=== PATIENT | female | born 1950 | race Caucasian/White ===

== ENCOUNTER 2018-05-04 13:38 | Emergency (ER) | payer OTHER ==
[~2018-05-04] VITALS: Ht 160 cm; Wt 61.2 kg
--- NOTE | ~2018-05-04 | EKG ---
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
[2018-05-04 14:39] LABS: HEMATOCRIT 33.6 % (37.0-47.0); HEMOGLOBIN 11.5 gm/dL (12.0-15.0); MCH 31.6 pg (26.0-34.0); MCHC 34.2 g/dL (28.0-37.0); MCV 92.4 fL (80.0-100.0); RBC 3.64 mil/uL (4.20-5.00); RDW 12.5 % (10.5-14.5); WBC 3.7 thou/uL (4.0-11.0)
[2018-05-04 14:46] LABS: ANION GAP 5 mmol/L (7-16); BUN 5 mg/dL (7-18); CALCIUM 9.2 mg/dL (8.5-10.1); CHLORIDE 94 mmol/L (98-107); CO2 25 mmol/L (21-32); CREATININE 0.6 mg/dL (0.6-1.0); GLUCOSE 99 mg/dL (74-106); POTASSIUM 3.7 mmol/L (3.5-5.1); SODIUM 124 mmol/L (136-145)
[2018-05-04 14:56] LABS: TROPONIN-I <0.06 ng/mL (<0.06)
[2018-05-04 16:14] LABS: URINE BILIRUBIN NEGATIVE (Negative); URINE BLOOD 2+ (Negative); URINE CLARITY CLEAR; URINE COLOR YELLOW; URINE GLUCOSE-RANDOM* NEGATIVE (Negative); URINE KETONES NEGATIVE (Negative); URINE NITRITE-REFLEX NEGATIVE (Negative); URINE PROTEIN (DIPSTICK) NEGATIVE (Negative); URINE UROBILINOGEN 0.2 E.U./dl (0.2-1.0)
[2018-05-04 16:15] LABS: URINE LEUKOCYTES-REFLEX TRACE (Negative)
[2018-05-04 16:22] LABS: BACTERIA-REFLEX None Seen /HPF (None Seen); CASTS None Seen /LPF (None Seen); CRYSTALS None Seen /LPF (None Seen); SQUAMOUS 4-10 Moderate /LPF (0-3); URINE RBC 3-10 Few /HPF (0-2); URINE WBC-REFLEX 0-5 Rare /HPF (0-5)
[2018-05-04 18:36] VITALS: BP 140/69
== END 2018-05-04 18:36 ==
LOC: ER 13:38
PROVIDERS: Emergency Medicine
DX: R42 Dizziness and giddiness (principal); J44.9 Chronic obstructive pulmonary disease, unspecified; Z88.6 Allergy status to analgesic agent; Z88.8 Allergy status to other drugs, medicaments and biological substances; Z85.118 Personal history of other malignant neoplasm of bronchus and lung

== ENCOUNTER 2018-06-20 07:03 | Emergency (ER) | payer OTHER ==
[~2018-06-20] VITALS: Ht 154.9 cm; Wt 49.4 kg
--- NOTE | ~2018-06-20 | EKG ---
[address] [address] ELECTROCARDIOGRAM REPORT Name: ELANNELIA Room #: DEP Mohsen#: [id number] Admission: 06/20/18 Attend Phys: Discharge: 06/20/18 Date of : 46 Report #: [id number] THIS REPORT FOR: //name// 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
[2018-06-20] MEDS ORDERED: TYLENOL325 MG PO (07:58)
[2018-06-20] MEDS ORDERED: BENADRYL25 MG PO (07:58)
[2018-06-20] MEDS ORDERED: VENTOLIN HFA 1818 GM INH (07:59)
[2018-06-20] MEDS ORDERED: ATIVAN1 MG PO (07:59)
[2018-06-20 08:09] LABS: ABSOLUTE NEUTROPHILS 3.4 thou/uL (1.4-8.2); BASOPHILS 0.6 % (0.0-2.0); EOSINOPHILS 0.6 % (0.0-3.0); HEMATOCRIT 34.4 % (37.0-47.0); LYMPHOCYTES 7.4 % (24.0-44.0); MCH 31.8 pg (26.0-34.0); MCHC 34.8 g/dL (28.0-37.0); MCV 91.3 fL (80.0-100.0); MONOCYTES 10.6 % (1.0-8.0); PLATELET COUNT 170 thou/uL (150-400); POLYS 80.8 % (36.0-66.0); RBC 3.77 mil/uL (4.20-5.00); WBC 4.2 thou/uL (4.0-11.0)
[2018-06-20 08:18] LABS: ANION GAP 7 mmol/L (7-16); BUN 8 mg/dL (7-18); CALCIUM 9.4 mg/dL (8.5-10.1); CHLORIDE 99 mmol/L (98-107); CO2 26 mmol/L (21-32); CREATININE 0.7 mg/dL (0.6-1.0); POTASSIUM 3.8 mmol/L (3.5-5.1); SODIUM 132 mmol/L (136-145)
[2018-06-20 08:27] LABS: ALBUMIN 3.4 g/dL (3.4-5.0); MAGNESIUM 1.9 mg/dL (1.8-2.4); SGOT 14 U/L (15-37); SGPT 15 U/L (30-65); TOTAL BILIRUBIN 0.3 mg/dL (<0.1-1.0); TOTAL PROTEIN 7.9 g/dL (6.4-8.2); TROPONIN-I <0.06 ng/mL (<0.06)
[2018-06-20 08:37] LABS: GLUCOSE 115 mg/dL (74-106)
[2018-06-20 08:44] LABS: URINE BILIRUBIN NEGATIVE (Negative); URINE BLOOD 2+ (Negative); URINE CLARITY CLEAR; URINE COLOR YELLOW; URINE GLUCOSE-RANDOM* NEGATIVE (Negative); URINE KETONES NEGATIVE (Negative); URINE NITRITE-REFLEX NEGATIVE (Negative); URINE PROTEIN (DIPSTICK) NEGATIVE (Negative); URINE SPECIFIC GRAVITY <= 1.005 (1.005-1.035); URINE UROBILINOGEN 0.2 E.U./dl (0.2-1.0)
[2018-06-20 08:45] LABS: URINE LEUKOCYTES-REFLEX TRACE (Negative)
[2018-06-20 08:57] LABS: CASTS None Seen /LPF (None Seen); MUCUS 0-3 Light strn/LPF (None Seen); SQUAMOUS >10 Many /LPF (0-3)
[2018-06-20 08:58] LABS: BACTERIA-REFLEX None Seen /HPF (None Seen); CRYSTALS None Seen /LPF (None Seen); URINE RBC 3-10 Few /HPF (0-2); URINE WBC-REFLEX 0-5 Rare /HPF (0-5)
[2018-06-20 11:12] VITALS: BP 158/79
== END 2018-06-20 11:13 | disposition home or self-care (01) ==
LOC: ER 07:03
PROVIDERS: Emergency Medicine
DX: R42 Dizziness and giddiness (principal); R00.0 Tachycardia, unspecified; R51 Headache; R11.0 Nausea; J44.9 Chronic obstructive pulmonary disease, unspecified; Z88.6 Allergy status to analgesic agent; Z88.8 Allergy status to other drugs, medicaments and biological substances; Z85.118 Personal history of other malignant neoplasm of bronchus and lung

== ENCOUNTER 2018-08-13 16:41 | Emergency (ER) | payer OTHER ==
[~2018-08-13] VITALS: Ht 154.9 cm; Wt 47.2 kg
--- NOTE | ~2018-08-13 | EKG ---
[address] [address] ELECTROCARDIOGRAM REPORT Name: NELIA ANSARI 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: NADEGE : 1950 Requested By: Hero Tellez Order Number: [id number] MD: Beck Sosa Measurements Intervals [place] Rate: 108 P: 64 [place]: 172 QRS: 67 QRSD: 80 T: 55 QT: 356 QTc: 477 Interpretive Statements Sinus tachycardia Ventricular premature complex Compared to ECG 06/20/2018 07:11:29 Ventricular premature complex(es) now present Electronically Signed On 08-14-2018 7:44:06 BLASTING CONTRACT MINER by Beck Sosa [email or web address] <ELECTRONICALLY SIGNED> By: Beck Sosa MD, [facility] 08/14/18 0744 29 29 Beck Sosa MD, FAC /EPI
[~2018-08-13 16:41] MED LIST: ATIVAN1 MG PO; BENADRYL25 MG PO; TYLENOL325 MG PO; VENTOLIN HFA 1818 GM INH
[2018-08-13] MEDS ORDERED: NEURONTIN 300300 M1 PO (17:20)
[2018-08-13 17:41] LABS: ABSOLUTE NEUTROPHILS 9.3 thou/uL (1.4-8.2); BASOPHILS 0.5 % (0.0-2.0); EOSINOPHILS 0.2 % (0.0-3.0); HEMATOCRIT 35.3 % (37.0-47.0); HEMOGLOBIN 12.1 gm/dL (12.0-15.0); LYMPHOCYTES 2.2 % (24.0-44.0); MCH 31.2 pg (26.0-34.0); MCHC 34.3 g/dL (28.0-37.0); MONOCYTES 6.8 % (1.0-8.0); PLATELET COUNT 166 thou/uL (150-400); POLYS 90.3 % (36.0-66.0); RBC 3.88 mil/uL (4.20-5.00); RDW 13.1 % (10.5-14.5); WBC 10.2 thou/uL (4.0-11.0)
[2018-08-13 17:51] LABS: ANION GAP 10 mmol/L (7-16); BUN 7 mg/dL (7-18); CALCIUM 9.8 mg/dL (8.5-10.1); CHLORIDE 93 mmol/L (98-107); CO2 25 mmol/L (21-32); CREATININE 0.7 mg/dL (0.6-1.0); GLUCOSE 135 mg/dL (74-106); SODIUM 128 mmol/L (136-145)
[2018-08-13 18:00] LABS: TROPONIN-I <0.06 ng/mL (<0.06)
[2018-08-13] MEDS ORDERED: ALBUTEROL2.5 MG/31 INH (19:38)
[2018-08-13] MEDS ORDERED: AUGMENTIN 500-1 EACH PO (19:38)
[2018-08-13] MEDS ORDERED: PREDNISONE 20 M20 MG PO (19:38)
[2018-08-13 22:17] VITALS: BP 124/65
== END 2018-08-13 22:20 | disposition home or self-care (01) ==
LOC: ER 16:41
PROVIDERS: Emergency Medicine
DX: J44.1 Chronic obstructive pulmonary disease with (acute) exacerbation (principal); R00.0 Tachycardia, unspecified; Z85.118 Personal history of other malignant neoplasm of bronchus and lung; Z88.5 Allergy status to narcotic agent; Z88.6 Allergy status to analgesic agent

== ENCOUNTER 2019-06-01 23:16 | Emergency (ER) | payer OTHER ==
[~2019-06-01] VITALS: Ht 152.4 cm; Wt 54.4 kg
[~2019-06-01 23:16] MED LIST changes: +ALBUTEROL2.5 MG/31 INH; +AUGMENTIN 500-1 EACH PO; +NEURONTIN 300300 M1 PO; +PREDNISONE 20 M20 MG PO
[2019-06-01] MEDS ORDERED: PULMICORT0.5 MG/22 INH (23:41)
[2019-06-01] MEDS ORDERED: SYNTHROID75 MCG PO (23:43)
[2019-06-01] MEDS ORDERED: MECLIZINE HCL12.5 MG PO (23:46)
[2019-06-01] MEDS ORDERED: LOPRESSOR25 PO (23:46)
[2019-06-01] MEDS ORDERED: ONDANSETRON HCL4 M2 PO (23:47)
[2019-06-02 00:49] LABS: HEMATOCRIT 31.3 % (37.0-47.0); HEMOGLOBIN 10.5 gm/dL (12.0-15.0); MCH 29.4 pg (26.0-34.0); MCHC 33.5 g/dL (28.0-37.0); MCV 87.7 fL (80.0-100.0); PLATELET COUNT 183 thou/uL (150-400); RBC 3.56 mil/uL (4.20-5.00); RDW 15.1 % (10.5-14.5); WBC 4.6 thou/uL (4.0-11.0)
[2019-06-02 00:55] LABS: ANION GAP 6 mmol/L (7-16); BUN 10 mg/dL (7-18); CALCIUM 9.2 mg/dL (8.5-10.1); CHLORIDE 98 mmol/L (98-107); CO2 27 mmol/L (21-32); CREATININE 0.6 mg/dL (0.6-1.0); GLUCOSE 109 mg/dL (74-106); POTASSIUM 3.1 mmol/L (3.5-5.1); SODIUM 131 mmol/L (136-145)
[2019-06-02 01:04] LABS: MAGNESIUM 1.7 mg/dL (1.8-2.4); TROPONIN-I <0.06 ng/mL (<0.06)
[2019-06-02 01:17] LABS: ABSOLUTE NEUTROPHILS 3.6 thou/uL (1.4-8.2)
[2019-06-02 02:44] VITALS: BP 167/89
--- NOTE | 2019-06-03 09:09 | EKG ---
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 : 1950 Requested By: Jarrod Zavala Order Number: [id number] MD: Zacarias Mascorro Measurements Intervals [place] Rate: 67 P: 80 ID: 176 QRS: 56 QRSD: 105 T: 56 QT: 450 QTc: 475 Interpretive Statements Sinus rhythm Borderline T abnormalities, anterior leads Compared to ECG 08/13/2018 17:30:54 T-wave abnormality now present Sinus tachycardia no longer present Ventricular premature complex(es) no longer present Electronically Signed On 06-03-2019 9:09:17 CDT by Zacarias Mascorro [email or web address] <ELECTRONICALLY SIGNED> By: Zacarias Mascorro MD 06/03/1909 0014 0014 Zacarias Mascorro MD /EPI
== END 2019-06-02 02:45 | disposition home or self-care (01) ==
LOC: ER 23:16
PROVIDERS: Emergency Medicine
DX: S01.81XA Laceration without foreign body of other part of head, initial encounter (principal); Z85.118 Personal history of other malignant neoplasm of bronchus and lung; Z88.6 Allergy status to analgesic agent; Z88.5 Allergy status to narcotic agent; Z88.8 Allergy status to other drugs, medicaments and biological substances; W18.39XA Other fall on same level, initial encounter; Y92.89 Other specified places as the place of occurrence of the external cause; Y93.89 Activity, other specified; Y99.8 Other external cause status

== ENCOUNTER 2019-07-02 18:57 | Emergency (ER) | payer OTHER ==
[~2019-07-02] VITALS: Ht 152.4 cm; Wt 47.2 kg
--- NOTE | ~2019-07-02 | EMS ---
[address] [address] EMS Patient Care Report Name: NELIA ANSARI Room #: REG MAGEN Connolly#: [id number] Admission: 07/02/19 Attend Phys: Discharge: Date of : 46 Report #: [id number] THIS REPORT FOR: //name// Report Transmitted: 07/02/2019 18:31 EMS Care Summary [place], [place]/[facility] Incident [id number] @ 07/02/2019 18:36 Incident Location [address] [address] Patient NELIA ANSARI Female, 68 Years 1950 Patient Address [address] [place] [address] Patient History Lung Cancer,Hypothyroidism, Patient Allergies Codeine,Hydrocodone,Diphenhydramine,Prednisone, Patient Medications Metoprolol, Synthroid, Lorazepam, Meclizine, Albuterol, Chief Complaint DIARRHEA Disposition Transported No Lights/[place] Dispatch Reason Sick Person Transported To [facility] Narrative PATIENT REPORTS PERSISTENT DIARRHEA FOR THE PAST DAY. SHE STATES SHE TOOK SOME OTC MEDICATION ABOUT 3 HOURS AGO WITH NO RELIEF. PATIENT FOUND AMBULATING THE SCENE ALERT, APPROPRIATE, SPEAKING IN FULL SENTENCES. PATIENT ASSISTED TO THE COT AND SECURED. PATIENT TRANSPORTED WITHOUT INCIDENT. RADIO REPORT TO [facility]. PATIENT CARE TRANSFERRED TO RN UPON ARRIVAL. [address] [address] EMS Patient Care Report Name: NELIA ANSARI Room #: REG MAGEN Connolly#: [id number] Admission: 07/02/19 Attend Phys: Discharge: Date of : 46 Report #: [id number] Initial Vitals @18:46P: 89,R: 18,BP: 155/76,Pain: 0/10,GCS: 15,CO: 1,SpO2: 95,Revised Trauma: 12, @18:43P: 92,R: 18,BP: 154/82,Pain: 0/10,GCS: 15,CO: 1,SpO2: 95,Revised Trauma: 12, Assessments @18:41MENTAL:Person Oriented,Time Oriented,Event Oriented,Place Oriented,SKIN:HEENT:LUNG SOUNDS:General: Diarrhea,ABDOMEN:General: Diarrhea,PELVIS//GI:No Abnormalities,EXTREMITIES:Left Arm: No Abnormalities,Right Arm: No Abnormalities,Left Leg: No Abnormalities,Right Leg: No Abnormalities,PULSE:NEURO:No Abnormalities, Impression Diarrhea Procedures @18:41ALS AssessmentResponse: Unchanged Timeline 18:34,Call Received 18:34,Dispatch Notified 18:36,Dispatched 18:36,En Route 18:39,On Scene 18:41,At Patient 18:41,ALS Assessment,Response: Unchanged 18:43,BP: 154/82 M,PULSE: 92,RR: 18 R,SPO2: 95 Ox,ETCO2: ,BG: ,PAIN: 0,GCS: 15, 18:44,Depart Scene 18:46,BP: 155/76 M,PULSE: 89,RR: 18 R,SPO2: 95 Ox,ETCO2: ,BG: ,PAIN: 0,GCS: 15, 18:53,At Destination 19:09,Call Closed Disclaimer v1.1 Copyright 2019 [employer] This EMS Care Summary contains data elements from the applicable legal record (which may be displayed differently). It is designed to provide pertinent information for the following purposes: continuity of care, clinical quality, and state data reporting. The complete legal record is available to ED staff and administrators of the receiving hospital in [employer] Patient Tracker. All data is provided "as is."
[~2019-07-02 18:57] MED LIST changes: +LOPRESSOR25 PO; +MECLIZINE HCL12.5 MG PO; +ONDANSETRON HCL4 M2 PO; +PULMICORT0.5 MG/22 INH; +SYNTHROID75 MCG PO
[2019-07-02 19:51] LABS: ANION GAP 7 mmol/L (7-16); BUN 9 mg/dL (7-18); CALCIUM 9.6 mg/dL (8.5-10.1); CHLORIDE 101 mmol/L (98-107); CO2 28 mmol/L (21-32); CREATININE 0.6 mg/dL (0.6-1.0); GLUCOSE 127 mg/dL (74-106); POTASSIUM 3.9 mmol/L (3.5-5.1); SODIUM 136 mmol/L (136-145)
[2019-07-02 19:52] LABS: BASOPHILS 0.9 % (0.0-2.0); EOSINOPHILS 0.6 % (0.0-3.0); HEMATOCRIT 36.1 % (37.0-47.0); HEMOGLOBIN 11.6 gm/dL (12.0-15.0); LYMPHOCYTES 8.8 % (24.0-44.0); MCH 28.6 pg (26.0-34.0); MCV 89.2 fL (80.0-100.0); MONOCYTES 11.8 % (1.0-8.0); PLATELET COUNT 187 thou/uL (150-400); POLYS 77.9 % (36.0-66.0); RBC 4.04 mil/uL (4.20-5.00); RDW 15.7 % (10.5-14.5); WBC 6.5 thou/uL (4.0-11.0)
[2019-07-02 19:58] LABS: ALBUMIN 3.7 g/dL (3.4-5.0); DIRECT BILIRUBIN < 0.1 mg/dL (<0.1-0.3); SGOT 12 U/L (15-37); SGPT 10 U/L (30-65); TOTAL BILIRUBIN 0.1 mg/dL (<0.1-1.0)
[2019-07-02 20:34] LABS: URINE BILIRUBIN NEGATIVE (Negative); URINE BLOOD 2+ (Negative); URINE CLARITY CLEAR; URINE COLOR YELLOW; URINE GLUCOSE-RANDOM* NEGATIVE (Negative); URINE KETONES NEGATIVE (Negative); URINE LEUKOCYTES-REFLEX NEGATIVE (Negative); URINE NITRITE-REFLEX NEGATIVE (Negative); URINE PROTEIN (DIPSTICK) NEGATIVE (Negative); URINE SPECIFIC GRAVITY 1.015 (1.005-1.035); URINE UROBILINOGEN 0.2 E.U./dl (0.2-1.0)
[2019-07-02 20:44] LABS: BACTERIA-REFLEX None Seen /HPF (None Seen); CASTS None Seen /LPF (None Seen); MUCUS >6 Heavy strn/LPF (None Seen); SQUAMOUS 0-3 Few /LPF (0-3); URINE RBC >20 Many /HPF (0-2); URINE WBC-REFLEX 0-5 Rare /HPF (0-5)
[2019-07-02 20:45] LABS: AMORPHOUS PHOSPHATES Moderate /LPF (None Seen)
[2019-07-02 23:11] VITALS: BP 165/85
== END 2019-07-02 23:11 | disposition home or self-care (01) ==
LOC: ER 18:57
PROVIDERS: Emergency Medicine
DX: R19.7 Diarrhea, unspecified (principal); Z85.118 Personal history of other malignant neoplasm of bronchus and lung; Z88.6 Allergy status to analgesic agent; Z88.5 Allergy status to narcotic agent

== ENCOUNTER 2019-12-10 16:06 | Emergency (ER) | payer OTHER ==
[~2019-12-10] VITALS: Ht 154.9 cm; Wt 45.4 kg
--- NOTE | 2019-12-10 16:29 | EKG ---
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
[2019-12-10 16:41] LABS: HEMATOCRIT 34.4 % (37.0-47.0); HEMOGLOBIN 11.3 gm/dL (12.0-15.0); MCH 29.4 pg (26.0-34.0); MCHC 32.8 g/dL (28.0-37.0); MCV 89.8 fL (80.0-100.0); PLATELET COUNT 228 thou/uL (150-400); RBC 3.83 mil/uL (4.20-5.00); WBC 4.2 thou/uL (4.0-11.0)
[2019-12-10 16:47] LABS: ANION GAP 4 mmol/L (7-16); BUN 7 mg/dL (7-18); CALCIUM 9.1 mg/dL (8.5-10.1); CHLORIDE 98 mmol/L (98-107); CO2 29 mmol/L (21-32); CREATININE 0.7 mg/dL (0.6-1.0); GLUCOSE 96 mg/dL (74-106); SODIUM 131 mmol/L (136-145)
[2019-12-10 16:51] LABS: URINE BILIRUBIN NEGATIVE (Negative); URINE BLOOD 2+ (Negative); URINE CLARITY CLEAR; URINE COLOR YELLOW; URINE GLUCOSE-RANDOM* NEGATIVE (Negative); URINE KETONES NEGATIVE (Negative); URINE NITRITE-REFLEX NEGATIVE (Negative); URINE PROTEIN (DIPSTICK) NEGATIVE (Negative); URINE SPECIFIC GRAVITY 1.015 (1.005-1.035); URINE UROBILINOGEN 0.2 E.U./dl (0.2-1.0)
[2019-12-10 16:57] LABS: MAGNESIUM 1.9 mg/dL (1.8-2.4); SALICYLATE < 2.8 mg/dL (2.8-20.0); SGOT 11 U/L (15-37); SGPT 6 U/L (30-65); TOTAL BILIRUBIN 0.2 mg/dL (<0.1-1.0); TOTAL PROTEIN 7.6 g/dL (6.4-8.2); TROPONIN-I <0.06 ng/mL (<0.06)
[2019-12-10 16:58] LABS: URINE LEUKOCYTES-REFLEX 2+ (Negative)
[2019-12-10 16:59] LABS: AMP/METHAMP Negative (Negative); BARBITURATES Negative (Negative); BENZODIAZEPINES Negative (Negative); COCAINE Negative (Negative); METHADONE Negative (Negative); OPIATES Negative (Negative); PCP Negative (Negative)
[2019-12-10 17:00] LABS: CASTS None Seen /LPF (None Seen); CRYSTALS None Seen /LPF (None Seen); SQUAMOUS 4-10 Moderate /LPF (0-3)
[2019-12-10 17:01] LABS: URINE RBC 0-2 Rare /HPF (0-2); URINE WBC-REFLEX 6-15 Few /HPF (0-5)
[2019-12-10 17:17] LABS: ANISOCYTOSIS 1+
[2019-12-10] MEDS ORDERED: KEFLEX500 M1 PO (17:26)
[2019-12-10 18:21] VITALS: BP 136/60
== END 2019-12-10 19:32 | disposition home or self-care (01) ==
LOC: ER 16:06
PROVIDERS: Emergency Medicine
DX: N39.0 Urinary tract infection, site not specified (principal); R41.0 Disorientation, unspecified; E05.90 Thyrotoxicosis, unspecified without thyrotoxic crisis or storm; R42 Dizziness and giddiness; J44.9 Chronic obstructive pulmonary disease, unspecified; Z79.899 Other long term (current) drug therapy

== ENCOUNTER 2020-02-09 23:39 | Emergency (ER) | payer OTHER ==
[~2020-02-09] VITALS: Ht 152.4 cm; Wt 45.4 kg
[~2020-02-09 23:39] MED LIST changes: +ATIVAN1 M1 PO; -ATIVAN1 MG PO; +KEFLEX500 M1 PO; -LOPRESSOR25 PO; +METOPROLOL TART25 MG PO
[2020-02-09] MEDS ORDERED: ANORO ELLIPTA1 EACH INH (23:59)
[2020-02-10] MEDS ORDERED: LEXAPRO 10 MG T10 M2 PO
[2020-02-10] MEDS ORDERED: TESSALON PERLE100 M1 PO (00:04)
[2020-02-10] MEDS ORDERED: BISMATROL PO (00:06)
[2020-02-10] MEDS ORDERED: INTERMEZZO3.5 MG PO (00:07)
[2020-02-10 00:11] LABS: HEMATOCRIT 35.7 % (37.0-47.0); MCHC 33.5 g/dL (28.0-37.0); MCV 89.4 fL (80.0-100.0); PLATELET COUNT 204 thou/uL (150-400); RBC 3.99 mil/uL (4.20-5.00); RDW 14.3 % (10.5-14.5); WBC 6.2 thou/uL (4.0-11.0)
[2020-02-10 00:16] LABS: ANION GAP 6 mmol/L (7-16); BUN 10 mg/dL (7-18); CALCIUM 8.6 mg/dL (8.5-10.1); CHLORIDE 96 mmol/L (98-107); CO2 26 mmol/L (21-32); CREATININE 0.9 mg/dL (0.6-1.0); GLUCOSE 101 mg/dL (74-106); POTASSIUM 3.6 mmol/L (3.5-5.1); SODIUM 128 mmol/L (136-145)
[2020-02-10 00:25] LABS: TROPONIN-I <0.06 ng/mL (<0.06)
[2020-02-10 00:48] LABS: ABSOLUTE NEUTROPHILS 5.6 thou/uL (1.4-8.2)
[2020-02-10 00:49] LABS: PLATELET ESTIMATE NORMAL
[2020-02-10 02:48] VITALS: BP 125/76
--- NOTE | 2020-02-10 08:10 | EKG ---
[facility] [place] [address] ELECTROCARDIOGRAM REPORT Name: NELIA ANSARI Room #: DEP [facility] [id number] Admission: 02/09/20 Attend Phys: Discharge: 02/10/20 Date of : 46 Report #: [id number] THIS REPORT FOR: cc: Lukasz St MD, Darren E. MD Lundgren,Beck Bob MD [facility] THIS REPORT FOR: //name// [facility] ED Test Date: 2020-02-09 Test Time: 23:42:28 Pat Name: NELIA ANSARI Department: Room: Gender: Bottle Blower: brenad : 1950 Requested By: Jarrod Zavala Order Number: [id number] MD: Beck Sosa Measurements Intervals [place] Rate: 60 P: 79 [place]: 169 QRS: 59 QRSD: 105 T: 50 QT: 448 QTc: 448 Interpretive Statements Sinus rhythm No significant abnormality Compared to ECG 12/10/2019 16:14:10 No significant changes Electronically Signed On 02-10-2020 8:08:40 CDT by Beck Sosa [email or web address] <ELECTRONICALLY SIGNED> By: Beck Sosa MD, FACC 02/10/20 0808 2342 2342 Beck Sosa MD, [facility] /EPI
== END 2020-02-10 03:42 | disposition home or self-care (01) ==
LOC: ER 23:39
PROVIDERS: Emergency Medicine
DX: R07.89 Other chest pain (principal); R42 Dizziness and giddiness; M25.511 Pain in right shoulder; J44.9 Chronic obstructive pulmonary disease, unspecified; Z85.118 Personal history of other malignant neoplasm of bronchus and lung; Z79.899 Other long term (current) drug therapy; Z88.6 Allergy status to analgesic agent; Z88.8 Allergy status to other drugs, medicaments and biological substances

== ENCOUNTER 2020-10-04 18:06 | Inpatient (IN) | payer OTHER ==
[~2020-10-04] VITALS: Ht 152.4 cm; Wt 47.3 kg
[~2020-10-04 18:06] MED LIST changes: +ANORO ELLIPTA1 EACH INH; +BISMATROL PO; +INTERMEZZO3.5 MG PO; +LEXAPRO 10 MG T10 M2 PO; +TESSALON PERLE100 M1 PO
[2020-10-04 18:07] VITALS: BP 151/96
[2020-10-04 18:51] LABS: ABSOLUTE NEUTROPHILS 9.3 thou/uL (1.4-8.2); BASOPHILS 0.6 % (0.0-2.0); EOSINOPHILS 0.3 % (0.0-3.0); HEMATOCRIT 35.3 % (37.0-47.0); HEMOGLOBIN 11.6 gm/dL (12.0-15.0); LYMPHOCYTES 3.3 % (24.0-44.0); MCH 29.6 pg (26.0-34.0); MCHC 32.9 g/dL (28.0-37.0); MCV 89.8 fL (80.0-100.0); MONOCYTES 9.6 % (1.0-8.0); PLATELET COUNT 340 thou/uL (150-400); POLYS 86.2 % (36.0-66.0); RBC 3.93 mil/uL (4.20-5.00); RDW 14.7 % (10.5-14.5); WBC 10.8 thou/uL (4.0-11.0)
[2020-10-04 19:08] LABS: ALBUMIN 3.5 g/dL (3.4-5.0); CREATININE 0.7 mg/dL (0.6-1.0); DIRECT BILIRUBIN 0.1 mg/dL (<0.1-0.2); POTASSIUM 3.5 mmol/L (3.5-5.1); TOTAL BILIRUBIN 0.4 mg/dL (0.2-1.0); TOTAL PROTEIN 8.1 g/dL (6.4-8.2)
[2020-10-04 19:22] LABS: CALCIUM 9.1 mg/dL (8.5-10.1)
[2020-10-04 21:08] LABS: URINE BILIRUBIN NEGATIVE (Negative); URINE BLOOD 1+ (Negative); URINE CLARITY CLEAR; URINE COLOR YELLOW; URINE GLUCOSE-RANDOM* NEGATIVE (Negative); URINE KETONES 1+ (Negative); URINE LEUKOCYTES-REFLEX NEGATIVE (Negative); URINE NITRITE-REFLEX NEGATIVE (Negative); URINE PROTEIN (DIPSTICK) NEGATIVE (Negative); URINE UROBILINOGEN 0.2 E.U./dl (0.2-1.0)
[2020-10-04 21:31] LABS: BACTERIA-REFLEX 1-9 Few /HPF (None Seen); CASTS None Seen /LPF (None Seen); CRYSTALS None Seen /LPF (None Seen); MUCUS 0-3 Light strn/LPF (None Seen); SQUAMOUS 0-3 Few /LPF (0-3); URINE RBC 3-10 Few /HPF (0-2); URINE WBC-REFLEX 0-5 Rare /HPF (0-5)
[2020-10-04] MEDS ORDERED: LEVO-T50 MCG PO (23:05)
[2020-10-05 05:17] LABS: HEMATOCRIT 36.1 % (37.0-47.0); HEMOGLOBIN 11.9 gm/dL (12.0-15.0); MCH 29.9 pg (26.0-34.0); MCHC 33.1 g/dL (28.0-37.0); MCV 90.3 fL (80.0-100.0); RBC 3.99 mil/uL (4.20-5.00); RDW 14.8 % (10.5-14.5); WBC 9.5 thou/uL (4.0-11.0)
[2020-10-05 06:00] LABS: CALCIUM 9.3 mg/dL (8.5-10.1); CREATININE 0.7 mg/dL (0.6-1.0); POTASSIUM 3.6 mmol/L (3.5-5.1)
[2020-10-05 07:35] VITALS: BP 119/67
[2020-10-05 07:47] VITALS: BP 119/67
[2020-10-05 09:13] VITALS: BP 130/74
--- NOTE | 2020-10-05 14:04 | NUR ---
1 ODD JOB LABORER, 1 DINAMAP MACHINE, 16 PATIENTS
--- NOTE | 2020-10-05 14:12 | NUR ---
P A&OX4, FORGETFUL, VSS, PAIN LEFT SIDE FROM FALL AT HOME. IV LEFT FA PATENT SL. PATIENT ROOM AIR, SOA ON EXERTION. PATIENT STATES SHE FEELS MORE COMFORTABLE WITH WALKER, CLEARED 1 ASSIST BY PT. NO SIGNS OF DISTRESS. WILL CONTINUE TO MONITOR.
--- NOTE | 2020-10-05 15:38 | NUR ---
PT ADMITTED RELATED TO COPD EXACERBATION. CM REVIEWED CHART AND SPOKE WITH CARE TEAM. CM MET WITH PT AT BEDSIDE THIS DAY. PT APPEARS TO BE A&O X4. CM ROLE INTRODUCED. PT INDICATED SHE LIVES AT [facility]. PT INDICATED SHE USES A FWW TO ASSIST WITH MOBILITY. PT INDICATED SHE HAS AN INHALER FOR HOME USE BUT NO NEBULIZER OR HOME O2. PT INDICATED HER PCP IS DR. TALON NORWOOD. PT WORKED WITH PT AND INDICATED SHE WOULD BE SAFE TO DC BACK TO [place] ONCE MEDICALLY STABLE. CM FOLLOWING REGARDING DC PLANNING.
[2020-10-05 16:10] VITALS: BP 142/75
[2020-10-05 19:38] VITALS: BP 129/87
[2020-10-06 07:27] VITALS: BP 141/78
--- NOTE | 2020-10-06 08:01 | NUR ---
PROGRESS PT UP WITH SBA GAIT STEADY BUT PT STILL REPORTS NAUSEA AND VERTIGO. DENIED NEED FOR MEDICATION SLEPT MOST OF SHIFT VOIDING QS RT TX'S CONTINUE LUNGS COARSE AND DIMINISHED NO COUGH NOTED.
[2020-10-06 15:34] VITALS: BP 148/106
--- NOTE | 2020-10-06 16:37 | NUR ---
PT STILL COMPLAINING OF VERTIGO AND NEASUEA. ANTICIPATE POSSIBLE DC BACK TO [facility] TOMORROW. CM TO FOLLOW INDICATED WITH DC PLANNING.
[2020-10-06 20:21] VITALS: BP 144/93
--- NOTE | 2020-10-06 21:06 | NUR ---
ASSUMED CARE OF THE [ATIENT AT 0715, PATIENT ALERT WITH CONFUSION AND FORGETFUL. PATIENT ANXIOUS THE SHIFY ANF NAUSEATED, ALSO C/O DIZZINESS. DR HENDERSON NOTIFIED IN REGARD TO DIZZINESS, NAUSEA, AND B/P ELEVATED 140'S/100'S, HE STATED HE WILL LOOK AT HOME MEDS, ALSO NOTIFIED DR LOU, PATIENT ANXIOUS, HOME MEDS STATES LORAZEPAM 1.5 MG QID, HE STATED HE WOULD LOOK AT HOME MEDS. ORDER RECEIVED FO MECLZINE TID. PATIENT GIVEN ZOFREN 4MG IV X 2 THIS SHIFT. POSSIBLE DISCHARGE TOMORROW. WILL CONTINUE TO MONITOR.
[2020-10-07 07:50] VITALS: BP 147/97
--- NOTE | 2020-10-07 13:25 | NUR ---
Received awake on bed. Due medications given as prescribed, able to swallow meds w/o difficulty. On room air. Vital signs stable. On telemetry; no complains and chest pain, crushing sensation and heaviness. On regular diet- tolerating well; no vomiting and no abdominal pain noted. Continent of bowel and bladder, able to go to the toilet with standby assist, walker and gait belt. Falls bundle in place. With SL at L Fa- intact and flushing well. Assisted in ADLs. Pt complained of dizziness, on scheduled Meclizine- Dr Zamora informed and aware. Verified with pt re: pharmacy- unable to remember; CM informed that pt gets her medications from her assisted living facility. To continue monitoring patient.
[2020-10-07] MEDS ORDERED: MECLIZINE HCL25 MG PO (13:26)
--- NOTE | 2020-10-07 15:02 | NUR ---
PT STILL COMPLAINING OF VERTIGO AND NAUSEA THIS DAY. PHYSICIAN ENTERED ORDERS FOR PT TO GO FOR A SKILLED REHAB STAY THIS DAY. CM MET WITH PT AND SHE WAS AGREEABLE. CM PROVIDED A SNF LIST FOR PT'S TO REVIEW. CM INDICATED THAT CM WASN'T SURE IF HER INSURNACE WOULD AUTH SKILLED PT DISCHARGED HER 10/05/19 AND SHE HASN'T YET BEEN SEEN SEEN BY OT. OT WAS ORDERED. COVID TEST COLLECTED. CM NOTIFIED PHYSICIAN OF THE ABOVE. CM TO FOLLOW INDICATED WITH DC PLANNING.
[2020-10-07 15:45] VITALS: BP 176/116
[2020-10-07 16:30] VITALS: BP 159/99
[2020-10-07 19:53] VITALS: BP 155/91
--- NOTE | 2020-10-07 22:15 | NUR ---
Pt. transfered to [address] [place] [address]. Her covid test came back positive and needs to be on the covid unit. She offers no complaints.
[2020-10-08] VITALS (7 sets, daily range): BP systolic 141–164; BP diastolic 92–109
--- NOTE | 2020-10-08 02:58 | NUR ---
ASSUMED CARE FROM RN ON 4W, UPON ARRIVAL TO UNIT HEART SHOWS NSR , SAT 96 -98 PN 1 L. BP ELEVATED 170/107 THEN 164/101 XAVIER LINK FLOATING DERRICK OPERATOR ORDERED ORDERS RECIEVED. PT BP RETAKEN 158/102 , PT DENIES CHEST PAIN OR SOA. WILL HOLD MEDICATION UNITL NEEDED. PT RESTING WELL THROUGHOUT HOURLY ROUNDS. WILL CONTINUE WITH CURRENT PLAN OF CARE.
--- NOTE | 2020-10-08 07:00 | NUR ---
Spoke with son this am and he was informed of patient being transfered to [facility].
--- NOTE | 2020-10-08 14:02 | NUR ---
JACOBY reviewed chart and spoke with nursing and attending physician. Pt was transferred to 3W rom 4W due to having positive COVID test. Pt placed in Enhanced Isolation. Pt is afebrile and on 1L of O2. Pt is on IV steroids. Therapy is working with pt to assist with recommendations for discharge disposition. Pt has been provided with in-network SNF list. Will need prior authorization for SNF level of care. JACOBY placed call to pt's room. No answer. Call placed to pt's cell phone: [phone]. Voice mailbox is not set up. JACOBY notified that Ronal, director at [facility] states they are able to accept pt back with [facility]. Per Ronal, pt had COVID positive test at the facility on 09/18. environmental planner to fax HH referral to Davin at [facility]. JACOBY left voice message for Ronal at [facility] to see if they are able to accept pt back over the weekend. JACOBY spoke with pt's son, Shahriar, via phone to provide update and discuss discharge plan. Pt's son is agreeable with plan. Pt may need transportation back to the facility. Finalized discharge orders/summary will need to be faxed to the facility and HH when available. JACOBY is following to assist as needed with discharge planning. [facility]-- [facility]-- [facility]--
--- NOTE | 2020-10-08 14:30 | NUR ---
FAXED REFERRAL TO [facility] SPOKE WITH LIDYA IN INTAKE THEY ARE OON WITH INSURANCE.
--- NOTE | 2020-10-08 16:05 | NUR ---
FAXED REFERRAL TO [facility] SPOKE WITH DIVINE IN INTAKE SHE RECEIVED REFERRAL AND WILL ACCEPT AT [facility].
--- NOTE | 2020-10-08 16:07 | NUR ---
POSSIBLE DISCHARGE OVER WEEKEND IF PT DISCHARGES FAY WITH HH PLEASE FAX DC ORDERS/SUMMARY TO: [facility] FAX: [phone] AND CALL [phone] NOTIFIY OF DISCHARGE.
--- NOTE | 2020-10-08 17:09 | NUR ---
RN ASSUMED PT'S CARE AT 0700AM, PT IS A&OX2 ( PERSON AND PLACE), PT IS CONFUSED AT TIME, PT HAS WORKED WITH PT/OT, PT'S VS ARE STABLE BY THIS TIME,
--- NOTE | 2020-10-08 22:53 | NUR ---
PT ALERT AND ORIENTED X4. VSS. AFEBRILE. NO C/O PAIN. NO S/S DISTRES ON RA. ISOLATION DC'D PER DR MICHAEL. FALL PRECAUTIONS IN PLACE. BED ALARM IS ON.
[2020-10-09 04:18] VITALS: BP 147/98
--- NOTE | 2020-10-09 07:26 | NUR ---
PT PROGRESSING SLOWLY TOWARDS D/C GOALS. VSS SAT 92% ON RA. CONFUSED. BED ALARM ON.
[2020-10-09 08:12] VITALS: BP 147/97
[2020-10-09 15:20] VITALS: BP 146/89
--- NOTE | 2020-10-09 18:35 | NUR ---
RN ASSUMED PT'S CARE AT 0700AM, PT IS A&OX1 ( PERSON), RN HAS REORTED DR ABOUT PT MORE CONFUSION TODAY, PT'S VS ARE STABLE, PT GETS UP TO CHAIR WITH ASSIST, PT IS HIGH FALL RISK, PT'S SECOND COVID TEST IS POSITIVE TODAY , PT IS CONTINUING ISOLATION .
[2020-10-09 19:11] VITALS: BP 144/95
--- NOTE | 2020-10-09 22:13 | NUR ---
PT PROGRESSING SLOWLY TOWARDS D/C GOALS VSS AFEBRILE. SATS WNL ON RA. NOS/S DISTRESS. DENIED PAIN. BED DOWN . CALL LIGHT IN REACH. CHECKING PT FREQUENTLY SINCE SHE GETS CONFUSED AND TRIES TO GET OOB WITHOUT HELP. BED ALARM ON.
[2020-10-10 03:40] VITALS: BP 145/93
--- NOTE | 2020-10-10 04:53 | NUR ---
PT CONFUSED AND FORGETFUL. LESS AGITATED TONIGHT. UP TO BSC X1.VSS AFEBRILE. SATS WNL. BED DOWN CALL LIGHT IN REACH. BED ALARM ON. PROGRESSING TOWARDS D/C GOALS.
[2020-10-10 05:26] LABS: HEMATOCRIT 40.6 % (37.0-47.0); HEMOGLOBIN 13.5 gm/dL (12.0-15.0); MCH 29.5 pg (26.0-34.0); MCHC 33.3 g/dL (28.0-37.0); MCV 88.5 fL (80.0-100.0); RBC 4.59 mil/uL (4.20-5.00); RDW 14.6 % (10.5-14.5); WBC 9.8 thou/uL (4.0-11.0)
[2020-10-10 05:45] LABS: CALCIUM 8.9 mg/dL (8.5-10.1); CREATININE 0.6 mg/dL (0.6-1.0); POTASSIUM 3.7 mmol/L (3.5-5.1)
--- NOTE | 2020-10-10 06:21 | NUR ---
NOTIFIED SKIN INSTALLER FRANCESCO NA 119. SHE STATED SHE WOULD LOOK AT IT AND PUT IN ORDERS.
[2020-10-10 07:18] VITALS: BP 145/97
--- NOTE | 2020-10-10 07:46 | NUR ---
NOTIFIED DAY SHIFT NS RE NA 119. AND THAT ACUTE SPECIALIST SAID SHE WAS GOING TO LOOK AT IT AND PLACE ORDERS BUT HAS NOT. ASKED ER TO F/U WITH NA.
--- NOTE | 2020-10-10 16:18 | NUR ---
RN ASSUMED PT'S CARE AT 0700AM, PT KNEWS HER NAME AND DAY , RN HAS REPORTED TO DR ABOUT PT MORE CONFUSE TODAY, PT CANNOT FOLLOW COMMANDS, PT STARTS NS@ 75ML/HR FOR LOW SODIUME , PT IS HIGH FALL RISK, PT IS UNSTABLE TO WALK BY HERSELF,PT HAS NEW MEDICATIONS FOR ANXIETY,SOME HELP .
[2020-10-10 16:19] VITALS: BP 131/75
--- NOTE | 2020-10-10 18:33 | NUR ---
RN REPORTED DR ABOUT PT'S URINARY RETENTION, NEW ORDER INSERT DHALIWAL CATHETER AT 1730PM, PT IS TOLERATED ,
[2020-10-10 20:07] VITALS: BP 111/65
--- NOTE | 2020-10-10 23:10 | NUR ---
PT WAS GIVEN ATIVAN 1.5 MG AT 1700 ON DAY SHIFT . PT HAS BEEN SLEEPING UNTIL NOW. SHE AWAKENED BRIEFLY TO TAKE HER MECLIZINE AND WENT BACK TO SLEEP. PLACED A CALL TO CARDIOVASCULAR OPERATING ROOM NURSE TO DECREASE DOSE. PT IS CONFUSED. SPEECH IS DIFFICULT TO UNDERSTAND SHE IS STILL DROWSY. BED ALARM IS ON . CALL LIGHT IN REACH. SIDERAILS UP X4. NS INFUSING AT 75 ML HR. DHALIWAL DRAINING CLEAR YELLOW URINE. WILL CONTINUE TO MONITOR PT FREQUENTLY FOR IMPULSIVENESS AND CHANGES.
[2020-10-11 02:55] VITALS: BP 106/66
--- NOTE | 2020-10-11 04:07 | NUR ---
NOTIFIED PIZZA CHEF OF LUNGS SOUNDING MORE COARSE WITH WHEEZES. WILL CONTINUE IVFS ORDERED AND WAIT FOR BMP RESULTS ORDERED DUE TO LOW NA.
[2020-10-11 06:15] LABS: CALCIUM 8.3 mg/dL (8.5-10.1); CREATININE 0.9 mg/dL (0.6-1.0); POTASSIUM 3.2 mmol/L (3.5-5.1)
[2020-10-11 07:37] VITALS: BP 131/76
--- NOTE | 2020-10-11 08:14 | NUR ---
NOTIFIED DAY SHIFT NS TO F/U WITH K LEVEL AND ASK DR ABOUT CONTINUING FLUIDS AND IF HE WANTS A CXRAY REGARDING INCREASED COARSENESS.
--- NOTE | 2020-10-11 13:15 | NUR ---
Received awake on bed. Due medications given as prescribed, able to swallow meds. On regular diet- pt with poor appetite; encouraged and assisted in eating and drinking; no nausea, no vomiting and no abdominal pain noted. On telemetry; no complains and signs of chest pain, crushing sensation and heaviness. Assisted in ADLs. On room air, with noticeable wheezes and crackles- Dr Zamora informed during his AM rounds; Chest xray ordered. With tiwari in place, draining well; output measured and recorded accordingly. With NS at 75cc/hr, infusing well at R FA. Pt with on and off confusion, re-oriented from time to time. Pt complained of difficulty swallowing- Dr Zamora informed; ST evaluation ordered. To continue monitoring patient.
[2020-10-11 14:55] VITALS: BP 91/72
--- NOTE | 2020-10-11 16:01 | NUR ---
SW reviewed chart and spoke with nursing and attending physician. Enhanced Isolation precautions have been discontinued. Recommendation made for pt to go to post-acute care for continued rehab services and medical mgmt. SW spoke with pt via phone to discuss discharge plan. Pt states she feels very weak and she is getting confused when people ask her questions. Pt states that it is because of COVID. SW discussed in-network SNFs for review. Pt requests referral to [facility] SNF due to location. Pt asked JACOBY to contact her son, Shahriar, to provide an update. JACOBY spoke with Shahriar via phone to discuss SNF referral. Shahriar is agreeable with plan. SW faxed referral and notified [facility] post-acute liaison of new referral. Will need insurance authorization. JACOBY is following to assist as needed with discharge planning.
[2020-10-11 19:37] VITALS: BP 107/62
--- NOTE | 2020-10-12 00:52 | NUR ---
PT RESTING IN BED TALKING ABOUT THE FRUSTRATIONS WITH UNDERSTANDING WHERE FRACTIONS COME FROM. PTS SPEECH WAS RUSHED AND SHE HAS BYNUM FACIAL EXPRESSIONS. PT VERY PLEASANT AND THANKFUL WITH NURSING CARE PROVIDED. BED ALARM ON. LUNGS COARSE/CRACKLES.
[2020-10-12 03:10] VITALS: BP 131/76
[2020-10-12 05:46] LABS: CALCIUM 8.3 mg/dL (8.5-10.1); CREATININE 0.5 mg/dL (0.6-1.0)
[2020-10-12 06:29] LABS: POTASSIUM 4.3 mmol/L (3.5-5.1)
[2020-10-12 08:01] VITALS: BP 121/72
--- NOTE | 2020-10-12 11:09 | NUR ---
REPORT GIVEN TO ADRIANNE MCKEON IN CCU. PT BELONGINGS PACKED AND SENT DOWN WITH PT.
[2020-10-12 11:37] VITALS: BP 116/60
[2020-10-12 15:16] VITALS: BP 110/64
--- NOTE | 2020-10-12 16:48 | NUR ---
ASSUMED CARE OF PT AT APPROX 1130 FROM 3W. PT SETTLED IN ROOM, ASSESSMENTS CHARTED, MEDS GIVEN PER MAR. PT A&OX3, UNSURE OF SITUATION, SOMETIMES CONFUSED, SAD. NO C/O N/V. C/O CHEST PAIN D/T COUGHING. NOTIFIED WILL CONTINUE TO MONITOR AND FOLLOW POC.
[2020-10-12 20:15] VITALS: BP 124/60
[2020-10-13 05:14] VITALS: BP 126/62
[2020-10-13 05:16] VITALS: BP 126/62
[2020-10-13 08:08] VITALS: BP 113/65
[2020-10-13 11:17] VITALS: BP 99/55
[2020-10-13 15:15] VITALS: BP 108/58
--- NOTE | 2020-10-13 17:09 | NUR ---
Spoke with Ronal at [facility]. They are unable to accept patient and recommend skilled. Sp with son. He has some concerns regarding the financials. Leah kang with [facility] sp with son. Son agreeable to [facility] for skilled care in .
[2020-10-13 20:30] VITALS: BP 121/67
--- NOTE | 2020-10-13 20:55 | NUR ---
RECEIVED PT'S CARE AROUND 0735; PT. ON BED; ALERT; DURING AM ASSESSMENT PT. PERSON; TIME AND PLACE; FORGETFUL; AM MEDICATION GIVEN; REFUSED BREAKFAST REMAINED ABOUT THE IMPORTANCE OF EATING MEALS; ST. UNDERSTANDING; ENCOURAGE SUPPLEMMENTS; DRUNK SOME THROUGH THE DAY; SR ON THE MONITOR; D/C DHALIWAL AT 1545; EDUCATED ABOUT CALLING BEFORE GETTING UP FROM BED; ST. UNDERSTANDING; PT. ABLE TO VOID AFTER D/C DHALIWAL; UP TO CHAIR DURING THE AM; REQUESTED TO BE BACK TO BED DURING THE AFTERNOON; ASSESSMENT CHARGED; FOLLOWING POC; PASSED ON REPORT;
[2020-10-14 04:45] VITALS: BP 120/66
--- NOTE | 2020-10-14 08:19 | NUR ---
ASSUMED CARE OF THE PATIENT AT 1900; CONFUSED/ANXIOUS AT TIMES; NO C/O OF PAIN; SR ON THE MONITOR; SLEPT QUIETLY MOST OF THE NOC; PLAN IS FOR PATIENT TO D/C TO SNF TODAY; WILL CONTINUE TO MONITOR.
[2020-10-14 08:23] VITALS: BP 107/67
--- NOTE | 2020-10-14 11:35 | NUR ---
Case discussed with the care team. Pt dc ready to SNF at [facility]. They have auth in place and can accept today. They will arrange for w/c van transport once orders are faxed. Dc planner chief to fax the final orders and confirm transport arrangements with all parties including pt's son Shahriar. Chart copy in progress. Nursing to call report. 124c completed and in the chart copy.
--- NOTE | 2020-10-14 12:19 | NUR ---
PT DISCHARGING TODAY TO [facility] FAXED DC ORDERS/SUMMARY TO FACILITY SPOKE WITH TATYANA IN ADM SHE RECEIVED ORDERS AND ARRANGED TRANSPORT BY [facility] VAN FOR [id number] TODAY. NOTIFIED PT'S SON (DANIEL) OF DC AND TIME OF TRANSPORT. UNIT NOTIFIED AND CHART COPY PER US.
[2020-10-14 12:20] VITALS: BP 101/65
--- NOTE | 2020-10-14 17:09 | NUR ---
ASSESSMENT CHARTED - MEDS PER MAR - NO CO'S OF PAIN OR NASUEA. TOBY FLUIDS - DID NOT HAVE MUCH OF AN APPETITE TODAY. UP TO THE BATHROOM - BSC. PT TO SNF TODAY - REPORT CALLED TO RECEIEVING NURSE. LEFT UNIT VIA WCV. NO CO'S AT TIME OF D/C.
== END 2020-10-14 15:00 | DRG 871 ==
LOC: ER 18:06 → 2N 21:07 → EROBS 21:07 → 4W 21:07 → EROBS 10-05 05:44 → 4W 10-05 08:13 → 3W 10-07 23:26 → 2N 10-12 11:09
PROVIDERS: Hospitalist; Nurse Practitioner; ADMIT Internal Medicine; ATTEND Internal Medicine
DX: A41.9 Sepsis, unspecified organism (principal); J96.01 Acute respiratory failure with hypoxia; U07.1 COVID-19; G93.41 Metabolic encephalopathy; J44.1 Chronic obstructive pulmonary disease with (acute) exacerbation; E87.1 Hypo-osmolality and hyponatremia; C34.90 Malignant neoplasm of unspecified part of unspecified bronchus or lung; F41.9 Anxiety disorder, unspecified; E03.9 Hypothyroidism, unspecified; I10 Essential (primary) hypertension; G47.00 Insomnia, unspecified; M81.0 Age-related osteoporosis without current pathological fracture; R41.0 Disorientation, unspecified; F32.9 Major depressive disorder, single episode, unspecified; R42 Dizziness and giddiness; Z88.6 Allergy status to analgesic agent; Z88.8 Allergy status to other drugs, medicaments and biological substances; Z92.21 Personal history of antineoplastic chemotherapy; Z87.891 Personal history of nicotine dependence; Z79.899 Other long term (current) drug therapy
CPT/HCPCS: 10045; 10081; 10879

== ENCOUNTER 2020-11-23 06:51 | Inpatient (IN) | payer OTHER ==
[~2020-11-23] VITALS: Ht 152.4 cm; Wt 46.7 kg
[2020-11-23] VITALS (7 sets, daily range): BP systolic 165–181; BP diastolic 72–109
--- NOTE | ~2020-11-23 | EMS ---
[address] [address] EMS Patient Care Report Name: NELIA ANSARI Room #: REG MAGEN Connolly#: [id number] Admission: 11/23/20 Attend Phys: Discharge: Date of : 46 Report #: [id number] THIS REPORT FOR: //name// Report Transmitted: 11/23/2020 07:14 EMS Care Summary [place], [place]/[facility] Incident [id number] @ 11/23/2020 06:25 Incident Location [address] [place] [address] 5 Patient NELIA ANSARI Female, 70 Years 1950 Patient Address [address] [place], [place] [id number] Patient History Other,Chronic Obstructive Pulmonary Disease (COPD),Lung Cancer,Novel Coronavirus (COVID-19), Patient Allergies Acetaminophen,Codeine,Hydrocodone,Diphenhydramine,Prednisone,Oxycodone, Patient Medications Lorazepam, Ibuprofen, Albuterol, Levothyroxine, Tramadol, Metoprolol, Loperamide, Chief Complaint Goose egg to head w/headache Disposition Transported No Lights/[place] [facility] Reason Falls Transported To [facility] Narrative Called to the scene for a fall. Upon arrival, pt was lying on the floor, ROSAS x 3 in minor distress. She had a goose egg above the left eye and pain across [address] [address] EMS Patient Care Report Name: NELIA ANSARI Room #: REG [facility].#: [id number] Admission: 11/23/20 Attend Phys: Discharge: Date of : 46 Report #: [id number] her left groin area. She said she got out of bed and was going to the bathroom and had a sudden onset of vertigo causing her to fall. No loss of consciousness reported. Pt denied blood thinners. She also denied neck and back pain at this time. No rotation or shortening of the left leg present. Pt moved to the EMS cot and loaded into the ambulance w/o incident. Vitals obtained. 18g IV and D-stick. Vitals repeated. En route: no changes. RR to ER. Arrived: pt taken to ER #9 and moved to their bed w/o incident. Pt care & report to ER staff. Initial Vitals @06:40P: 98,CO: 6,SpO2: 95, @06:37P: 98,R: 16,BP: 163/93,Pain: 6/10,GCS: 15,SpO2: 99,Revised Trauma: 12, @06:40P: 95,R: 16,BP: 158/86,Pain: 6/10,GCS: 15,Glucose: 99,SpO2: 96,Revised Trauma: 12, Assessments @06:31MENTAL:Person Oriented,Time Oriented,Event Oriented,Place Oriented,SKIN:HEENT:Eyes: Left Pupil: 3-mm,Eyes: Right Pupil: 3-mm,Head/Face: MARLEN,Head/Face: JANET,LUNG SOUNDS:ABDOMEN:PELVIS//GI:Tenderness,JANET,EXTREMITIES:Left Arm: No Abnormalities,Right Arm: No Abnormalities,Left Leg: No Abnormalities,Right Leg: No Abnormalities,PULSE:Radial: 2+ Normal,NEURO:Other, Impression Injury of Hip Procedures @06:40Saline Lock 8cc (18 ga) Site: Forearm-RightResponse: UnchangedSucceeded@06:31ALS AssessmentResponse: UnchangedSucceeded Timeline 06:24,Call Received 06:24,Dispatch Notified 06:25,Dispatched 06:26,En Route 06:30,On Scene 06:31,At Patient 06:31,ALS Assessment,Response: UnchangedSucceeded, 06:37,BP: 163/93 M,PULSE: 98,RR: 16 R,SPO2: 99 Ox,ETCO2: ,BG: ,PAIN: 6,GCS: 15, 06:40,Saline Lock 8cc 18 ga Site: Forearm-Right,Response: UnchangedSucceeded, 06:40,BP: / M,PULSE: 98,RR: R,SPO2: 95 Ox,ETCO2: ,BG: ,PAIN: ,GCS: , 06:40,BP: 158/86 M,PULSE: 95,RR: 16 R,SPO2: 96 Ox,ETCO2: ,B,PAIN: 6,GCS: 15, 06:41,Depart Scene 06:48,At Destination 07:08,Call [facility] [address] [place] [address] EMS Patient Care Report Name: ALISANELIA US Room #: REG MAGEN Connolly#: [id number] Admission: 11/23/20 Attend Phys: Discharge: Date of : 46 Report #: [id number] Disclaimer v1.1 Copyright 202 [employer] This EMS Care Summary contains data elements from the applicable legal record (which may be displayed differently). It is designed to provide pertinent information for the following purposes: continuity of care, clinical quality, and state data reporting. The complete legal record is available to ED staff and administrators of the receiving hospital in [employer]'s Patient Tracker. All data is provided "as is."
--- NOTE | ~2020-11-23 | O ---
[facility] [place] [address] OPERATIVE REPORT Name: NELIA ANSARI Room #: 441-P [facility] M.R.#: [id number] Admission: 11/23/20 Attend Phys: Jarrell Gonzales MD Discharge: Date of : 46 Report #: [id number] THIS REPORT FOR: cc: Lukasz St MD, Darren E. MD VanDenBerghe,Teodoro Lauren MD ~ DATE OF SERVICE: 11/24/2020 PREOPERATIVE DIAGNOSIS: Left femoral neck fracture, valgus impacted. POSTOPERATIVE DIAGNOSIS: Left femoral neck fracture, valgus impacted. PROCEDURE PERFORMED: Left hip pinning. SURGEON: Teodoro Cummings MD DELIVERY REPRESENTATIVE: Radha Madera PA-C. ANESTHESIA: General per LMA. FLUIDS: 700 mL crystalloid. ESTIMATED BLOOD LOSS: 5 mL. IMPLANTS UTILIZED: Synthes titanium 7.3 cannulated screws. DESCRIPTION OF PROCEDURE: After proper identification of the patient and operative site in preoperative holding area, the operative site was signed by myself, prophylactic antibiotics given. We reviewed the risks, benefits, alternatives and complications of her injury and treatment. The patient wished to proceed with the above. She was brought back to the operative suite. After induction of satisfactory general anesthesia, she was carefully positioned on the operative table. A well-padded boot suspension was utilized. The legs were scissored on the [place] fracture table. Intraoperative C-arm revealed a valgus impacted fracture position. This was not placed under any traction and was attempted to be impacted further to reduce some of the valgus angulation. This improved slightly. The hip was then sterilely prepped and draped in the usual manner. Final skin draping was with an [place] isolation drape. An incision over the proximal femur was planned. Skin was incised sharply. Full-thickness skin flaps were developed. A multipin guide was placed over the lateral aspect of the femur. An inferior screw was inserted into the femoral head first, checking in the AP and lateral plane, followed by an anterior superior and posterior superior screw. The screws lengths were verified with C-arm in the AP and lateral planes. The outer cortex had been reamed. These were tightened by hand. The upper two screws had washers placed. All were deemed to be [address] [address] OPERATIVE REPORT Name: NELIA ANSARI Room #: 441-P [facility] Connolly#: [id number] Admission: 11/23/20 Attend Phys: Jarrell Gonzales MD Discharge: Date of : 46 Report #: [id number] extraarticular. The fracture remained in its alignment and the screws had good purchase. Wound was thoroughly irrigated with normal saline. Fascia was closed with 0 Vicryl, 2-0 Vicryl for the subcutaneous tissues, final skin closure was with betina. Sterile dressing was applied. The patient was awakened and transferred to the recovery room in stable condition. She will be toe touch weightbearing postoperatively. By: 1300 1322 Teodoro Cummings MD /maria r
[~2020-11-23 06:51] MED LIST changes: +LEVO-T50 MCG PO; +MECLIZINE HCL25 MG PO
[2020-11-23 09:26] LABS: ABSOLUTE NEUTROPHILS 4.8 thou/uL (1.4-8.2); BASOPHILS 0.6 % (0.0-2.0); EOSINOPHILS 2.2 % (0.0-3.0); HEMATOCRIT 37.8 % (37.0-47.0); HEMOGLOBIN 12.3 gm/dL (12.0-15.0); LYMPHOCYTES 5.6 % (24.0-44.0); MCH 29.7 pg (26.0-34.0); MCHC 32.4 g/dL (28.0-37.0); MCV 91.6 fL (80.0-100.0); MONOCYTES 8.9 % (1.0-8.0); PLATELET COUNT 232 thou/uL (150-400); POLYS 82.7 % (36.0-66.0); RBC 4.13 mil/uL (4.20-5.00); RDW 15.2 % (10.5-14.5); WBC 5.8 thou/uL (4.0-11.0)
[2020-11-23 09:36] LABS: CREATININE 0.6 mg/dL (0.6-1.0); POTASSIUM 3.7 mmol/L (3.5-5.1)
[2020-11-23 09:55] LABS: URINE BILIRUBIN NEGATIVE (Negative); URINE BLOOD TRACE (Negative); URINE CLARITY CLEAR; URINE COLOR YELLOW; URINE GLUCOSE-RANDOM* NEGATIVE (Negative); URINE KETONES TRACE (Negative); URINE LEUKOCYTES-REFLEX NEGATIVE (Negative); URINE NITRITE-REFLEX NEGATIVE (Negative); URINE PROTEIN (DIPSTICK) NEGATIVE (Negative); URINE SPECIFIC GRAVITY 1.015 (1.005-1.035); URINE UROBILINOGEN 0.2 E.U./dl (0.2-1.0)
--- NOTE | 2020-11-23 12:45 | NUR ---
PT A&OX4, VSS, PAIN IN LEFT HIP, NECK, BACK, AND HEAD. HOSPITALIST IN TO SEE PATIENT. PATIENT TO FLOOR FROM ER APPROX 1120. NO SIGNS OF DISTRESS. PATIENT HAS COUGH, HX OF COPD, ROOM AIR. IV PATIENT IN RIGHT WRIST. WILL CONTINUE TO MONITOR.
--- NOTE | 2020-11-24 04:28 | NUR ---
PT AOX4 WITH NOTABLE LETHARGY. PT REPORTS PAIN IN BACK. PT DENIES SOB WHILE ON ROOM AIR. PAIN NOTED TO WORSEN WITH MOVEMENT, PT REFUSING REPOSITIONING. PT RECEIVING PRN IV DILAUDID Q2HR. PT NPO WITH NAUSEA, REPORTING CONCERN WITH NO PO INTAKE WITH MEDICATIONS CAUSING STOMACH UPSET, PT REQUESTING NUTRITION OR FLUIDS. PT ASSESSED WITH BP OF 169/104. REVIEWED PROVIDER NOTES, ONCALL CUSTOMS ENTRY WRITER NOTIFIED, RECEIVED ORDERS FOR NPO AT MIDNIGHT DIET, PRN IV ZOFRAN Q4HR AND ONETIME IV HYDRALYZINE. PT GIVEN WATER, REFUSED FOOD OPTIONS AVAILABLE. PT WITH CONTINUED NAUSEA AND X1 EMESIS. ONCALL CUSTOMS ENTRY WRITER NOTIFIED, EMAR UPDATED. PT GIVEN ONETIME IV COMPAZINE WITH POSITIVE EFFECT. DHALIWAL CATHETER REMAINS IN PLACE, PATENT, FUCTIONING PROPERLY. PT RESTING IN BED THROUGHOUT SHIFT, FREQUENT REPOSITIONING ENCOURAGED, PT REFUSING REPOSITIONING DUE TO INCREASED PAIN WITH MOVEMENT AND ACTIVITY. PT ENCOURAGED TO NOTIFY STAFF FOR ALL NEEDS, CALL LIGHT WITHIN REACH, BED ALARM ON, BED LOCKED IN LOWEST POSITION, FREQUENT MONITORING WILL CONTINUE.
[2020-11-24 05:50] LABS: HEMATOCRIT 35.1 % (37.0-47.0); HEMOGLOBIN 11.6 gm/dL (12.0-15.0); MCH 29.8 pg (26.0-34.0); MCHC 33.1 g/dL (28.0-37.0); RBC 3.9 mil/uL (4.20-5.00); RDW 14.9 % (10.5-14.5); WBC 8.9 thou/uL (4.0-11.0)
[2020-11-24 06:43] LABS: ALBUMIN 3.2 g/dL (3.4-5.0); CALCIUM 8.4 mg/dL (8.5-10.1); CREATININE 0.6 mg/dL (0.6-1.0); PHOSPHORUS 2.6 mg/dL (2.5-4.9); POTASSIUM 3.2 mmol/L (3.5-5.1)
[2020-11-24 07:40] VITALS: BP 143/80
--- NOTE | 2020-11-24 09:38 | NUR ---
ASSUMED CARE OF PATIENT SHE HAS FX LEFT HIP TO HAVE SURGERY TODAY. GAVE REPORT TO OR NURSE. GAVE 2 AM MEDS WITH SIP WATER. NO PAIN OR RESP DISTRESS NOTED. HAS SCD'S ON.
--- NOTE | 2020-11-24 10:22 | NUR ---
COVID 19 TEST DONE RIGHT NARE SPECIMEN TAKEN TO LAB AT THIS TIME.
--- NOTE | 2020-11-24 10:49 | NUR ---
PATIENT TAKEN TO PRE-OP AT THIS TIME. PT W/O PAIN OR RESP DISTRESS.
--- NOTE | 2020-11-24 14:43 | NUR ---
PATIENT BACK FROM POST OP AT THIS TIME. PT ALERT XS 4 NO PAIN OR RESP DISTRESS.
--- NOTE | 2020-11-24 14:50 | NUR ---
ASSESSMENT: CM REVIEWED CHART AND SPOKE WITH PATIENT AT THE BEDSIDE. PT WAS ADMITTED AFTER A FALL AT HER ASSISTED LIVING APT AT [facility]. PT IS CURRENTLY WEARING A C COLLAR AND IS TO HAVE LEFT HIP PINNING TODAY. PT REPORTS SHE HAS BEEN TO [facility] IN THE PAST FOR SNF. PLANS ARE FOR POSSIBLE POST ACUTE CARE STAY POST SURGERY PENDING HER PROGRESSION WITH PT/OT. CM NOTIFIED LIASON AT [facility] AND FAXED UPDATED CLINICAL. CM SPOKE WITH PATIENTS SON DANIEL TO UPDATE. CM WILL CONTINUE TO FOLLOW TO ASSIST NEEDED.
--- NOTE | 2020-11-24 15:07 | NUR ---
PATIENT BACK FROM POST OP ALERT XS4 V.S. 98.2 18 91 169/96 O2 SAT 95% 2L NC PT REGULAR DIET BUT JUST WANTS APPLESUACE WILL EAT DINNER. FLUIDS INFUSING ORDERED. DHALIWAL TO D/D. DRESSING TO LEFT HIP WITH ICE BAG FOR COMFORT.
[2020-11-24 16:00] VITALS: BP 153/90
[2020-11-24 16:30] VITALS: BP 150/90
[2020-11-24 19:30] VITALS: BP 131/75
--- NOTE | 2020-11-24 22:18 | NUR ---
ASSESSED AT START OF SHIFT. PT RESTING IN BED. LEFTHIP DRESSING C/D/I. PAIN MEDICATION GIVEN. ICE PACK PROVIDED. IV INTACT AND FLUIDS INFUSING. FOLLEY CATH IN PLACE. FALL PRECAUTION MAINTAINED AND CALL LIGHT AT REACH WILL CONT WITH POC TILL EOS.
[2020-11-25 03:42] VITALS: BP 157/89
[2020-11-25 05:24] LABS: HEMATOCRIT 35.6 % (37.0-47.0); HEMOGLOBIN 11.7 gm/dL (12.0-15.0); MCH 29.8 pg (26.0-34.0); MCHC 32.8 g/dL (28.0-37.0); MCV 90.9 fL (80.0-100.0); RBC 3.92 mil/uL (4.20-5.00); RDW 15.7 % (10.5-14.5); WBC 10.3 thou/uL (4.0-11.0)
[2020-11-25 05:46] LABS: CALCIUM 8.6 mg/dL (8.5-10.1); CREATININE 0.7 mg/dL (0.6-1.0); PHOSPHORUS 1.6 mg/dL (2.5-4.9); POTASSIUM 3.1 mmol/L (3.5-5.1)
[2020-11-25 08:01] VITALS: BP 151/78
[2020-11-25 17:21] VITALS: BP 184/99
--- NOTE | 2020-11-25 18:02 | NUR ---
PT A&OX4, VSS, PAIN IN BACK, AND LEFT HIP. PAIN MEDICATION GIVEN. PATIENT HAS CONGESTED COUGH. PATIENT TOLERATING DIET. PATIENT HAD NO C/O NAUSEA TODAY. PATIENT UP TO RECLINER WITH PHYSICAL THERAPY. IV RIGHT WRIST PATENT, FLUIDS RUNNING. DRESSING ON LEFT HIP C/D/I. NO SIGNS OF DISTRESS. WILL CONTINUE TO MONITOR.
[2020-11-25 20:01] VITALS: BP 176/107
[2020-11-25 23:20] VITALS: BP 128/79
--- NOTE | 2020-11-26 00:58 | NUR ---
ASSESSED AT START OF SHIFT 1900. PT A&OX3 FORGETFUL. IV INTACT AND FLUIDS INFUSING. HIGH BP NOTED 176/107 ONCALL DIRECTOR OF EXTENSION WORK NOTED HYDRALAZINE ORDERED. BP RECHECKED AGAIN 128/79 BP MED NOT GIVEN WILL CHECKED AGAIN. LAB NOTIFIED THIS NURSE OF PT COVID RESULT POSITIVE. HOUSE SUP AND DIRECTOR OF EXTENSION WORK NOTIFIED. CALLED LAB TO VERIFY RESULTS SINCE PT WAS SWABED ON THE 11/23/20. RESULT CONFIRMED. PER HOUSE SUP PT TESTED POSITIVE IN AUGUST AND HAS BEEN CLEARED. PT ON 2L OF O2. LEFT HIP DRESSING C/D/I. FOLLEY IN PLACE. CALL LIGHT AT REACH AND WILL CONT TO MONITOR.
[2020-11-26 01:48] VITALS: BP 139/82
[2020-11-26 05:30] VITALS: BP 155/89
[2020-11-26 06:27] LABS: HEMATOCRIT 33.4 % (37.0-47.0); MCH 30.1 pg (26.0-34.0); MCV 91.2 fL (80.0-100.0); RBC 3.66 mil/uL (4.20-5.00); RDW 15.6 % (10.5-14.5); WBC 6.7 thou/uL (4.0-11.0)
[2020-11-26 06:48] LABS: CALCIUM 8.1 mg/dL (8.5-10.1); CREATININE 0.6 mg/dL (0.6-1.0); MAGNESIUM 1.7 mg/dL (1.8-2.4); PHOSPHORUS 2.1 mg/dL (2.5-4.9); POTASSIUM 3.8 mmol/L (3.5-5.1)
[2020-11-26 08:20] VITALS: BP 165/94
--- NOTE | 2020-11-26 10:23 | NUR ---
Assumed care of pt at 0700. Pt a&ox4. C/o lt hip pain. Prn pain medications administered. Dressing c/d/i. Rodriguez catheter in place. Toe touch weight bearing. Up to the chair this am. Call light within reach. Fall precautions in place. Will continue to monitor.
--- NOTE | 2020-11-26 15:08 | NUR ---
ON-GOING ASSESSMENT: CM REVIEWED CHART AND SPOKE WITH PATIENT. PT HAS ORDERS TO DISCHARGE TO SNF TODAY. CM DISCUSSED WITH PATIENT AND SHE IS OK WITH GOING TO [facility]. CM SPOKE WITH [facility] TO NOTIFY OF DISCHARGE AND FAXED ORDERS AND CONFIRMED THEY RECEIVED IT. TRANSPORTATION VIA STRETCHER HAS BEEN ARRANGED PER FACILITY FOR 1600. BEDSIDE RN NOTIFIED WELL PTS SON. CHART COPY WAS ORDERED. CM NOTIFIED PATIENTS SON DANIEL WHO IS AGREEABLE WITH PLAN. CM NOTIFIED LIASON AT [place] THAT COVID TEST SHOWED POSITIVE ON 11/23 BUT PER NURSING NOTE WAS CLEARED THROUGH AGENT TICKETING GATE PT TESTED POSITIVE FOR COVID BACK IN AUGUST. CM CONFIRMED WITH [facility] ASSISTED LIVING WHICH PATIENT IS FROM AND TESTED POSITIVE ON Aug. LIASON FROM [facility] IS AWARE OF THIS AND IS AGREEABLE TO ACCEPT PATIENT. PT REPORTS NO FRUTHER NEEDS FROM [facility]. CM UPDATED [facility] OF ADMISSION TO [facility]. CASE CLOSED.
== END 2020-11-26 16:11 | DRG 480 ==
LOC: ER 06:51 → 4S 09:32 → EROBS 09:32 → 4S 09:32
PROVIDERS: Emergency Medicine; Internal Medicine; Surgery; ADMIT Surgery; ATTEND Surgery
PROC: 0QH734Z Insertion of Internal Fixation Device into Left Upper Femur, Percutaneous Approach (ICD-10-PCS; principal; 2020-11-24)
DX: S72.002A Fracture of unspecified part of neck of left femur, initial encounter for closed fracture (principal); U07.1 COVID-19; E87.1 Hypo-osmolality and hyponatremia; J44.9 Chronic obstructive pulmonary disease, unspecified; F41.9 Anxiety disorder, unspecified; I10 Essential (primary) hypertension; S20.212A Contusion of left front wall of thorax, initial encounter; F17.210 Nicotine dependence, cigarettes, uncomplicated; E03.9 Hypothyroidism, unspecified; R91.8 Other nonspecific abnormal finding of lung field; F32.9 Major depressive disorder, single episode, unspecified; M54.2 Cervicalgia; M54.6 Pain in thoracic spine; Z88.6 Allergy status to analgesic agent; Z88.8 Allergy status to other drugs, medicaments and biological substances; Z79.899 Other long term (current) drug therapy; W18.39XA Other fall on same level, initial encounter; Y93.89 Activity, other specified; Z85.118 Personal history of other malignant neoplasm of bronchus and lung; Y92.89 Other specified places as the place of occurrence of the external cause; Y99.8 Other external cause status
CPT/HCPCS: 10195; 50010; 50101; 50386; 51412; 51538; 52304; 53400; 53402; 56525; 57092; 62110; 62900; 70005

== ENCOUNTER 2020-12-28 14:33 | Emergency (ER) | payer OTHER ==
[~2020-12-28] VITALS: Ht 152.4 cm; Wt 40.8 kg
[2020-12-28 15:14] LABS: ABSOLUTE NEUTROPHILS 2.9 thou/uL (1.4-8.2); BASOPHILS 1.1 % (0.0-2.0); HEMOGLOBIN 11.2 gm/dL (12.0-15.0); MCH 29.6 pg (26.0-34.0); MCHC 32.8 g/dL (28.0-37.0); MCV 90.1 fL (80.0-100.0); MONOCYTES 15.6 % (1.0-8.0); PLATELET COUNT 270 thou/uL (150-400); POLYS 70.3 % (36.0-66.0); RBC 3.77 mil/uL (4.20-5.00); RDW 15.5 % (10.5-14.5); WBC 4.1 thou/uL (4.0-11.0)
--- NOTE | 2020-12-28 15:22 | EKG ---
[address] [place] [address] ELECTROCARDIOGRAM REPORT Name: NELIA ANSARI Room #: PRE [facility].#: [id number] Admission: Attend Phys: Discharge: Date of : 46 Report #: [id number] [facility] ED Test Date: 2020-12-28 Test Time: 14:46:22 Pat Name: NELIA ANSARI Department: Room: Gender: F Speech Therapist Early Intervention: KIRBY : 1950 Requested By: Luis Alberto Rebolledo Order Number: [id number] MD: Beck Sosa Measurements Intervals [place] Rate: 76 P: 61 LA: 175 QRS: 72 QRSD: 87 T: 83 QT: 415 QTc: 467 Interpretive Statements Sinus rhythm No significant abnormality Compared to ECG 04/15/2020 23:36:25 T-wave abnormality no longer present Electronically Signed On 12-28-2020 15:22:29 CDT by Beck Sosa [email or web address] <ELECTRONICALLY SIGNED> By: Beck Sosa MD, [facility] 12/28/20 1522 1446 1446 Beck Sosa MD, FACC /EPI
[2020-12-28 15:25] LABS: ANION GAP 6 mmol/L (7-16); BUN 13 mg/dL (7-18); CALCIUM 8.9 mg/dL (8.5-10.1); CHLORIDE 102 mmol/L (98-107); CO2 29 mmol/L (21-32); CREATININE 0.9 mg/dL (0.6-1.0); GLUCOSE 102 mg/dL (74-106); POTASSIUM 3.8 mmol/L (3.5-5.1); SODIUM 137 mmol/L (136-145)
[2020-12-28 15:27] LABS: INR 0.97; PROTIME 10.6 Seconds (9.3-11.4)
[2020-12-28 15:35] LABS: ALBUMIN 3.1 g/dL (3.4-5.0); SGOT 14 U/L (15-37); SGPT 10 U/L (30-65); TOTAL BILIRUBIN 0.2 mg/dL (0.2-1.0); TOTAL PROTEIN 7.4 g/dL (6.4-8.2); TROPONIN-I <0.06 ng/mL (<0.06)
[2020-12-28] MEDS ORDERED: ANORO ELLIPTA1 EACH INH (16:08)
[2020-12-28] MEDS ORDERED: MECLIZINE HCL25 M1 PO (16:09)
[2020-12-28] MEDS ORDERED: ONE-DAILY MULT1 EAC1 PO (16:11)
[2020-12-28] MEDS ORDERED: VITAMIN C500 M1 PO (16:11)
[2020-12-28] MEDS ORDERED: DESYREL150 MG PO (16:12)
[2020-12-28] MEDS ORDERED: INTERMEZZO3.5 MG PO (16:13)
[2020-12-28] MEDS ORDERED: IBUPROFEN 400400 M2 PO (16:14)
[2020-12-28 16:26] LABS: URINE BILIRUBIN NEGATIVE (Negative); URINE BLOOD TRACE (Negative); URINE CLARITY CLEAR; URINE COLOR YELLOW; URINE GLUCOSE-RANDOM* NEGATIVE (Negative); URINE KETONES NEGATIVE (Negative); URINE LEUKOCYTES-REFLEX NEGATIVE (Negative); URINE NITRITE-REFLEX NEGATIVE (Negative); URINE PROTEIN (DIPSTICK) NEGATIVE (Negative); URINE SPECIFIC GRAVITY 1.025 (1.005-1.035); URINE UROBILINOGEN 0.2 E.U./dl (0.2-1.0)
[2020-12-28 20:50] VITALS: BP 146/68
== END 2020-12-28 20:50 | disposition home or self-care (01) ==
LOC: ER 14:33
PROVIDERS: Emergency Medicine
DX: S16.1XXA Strain of muscle, fascia and tendon at neck level, initial encounter (principal); S70.02XA Contusion of left hip, initial encounter; S80.01XA Contusion of right knee, initial encounter; S09.90XA Unspecified injury of head, initial encounter; J44.9 Chronic obstructive pulmonary disease, unspecified; I10 Essential (primary) hypertension; E03.9 Hypothyroidism, unspecified; Z79.899 Other long term (current) drug therapy; Z88.6 Allergy status to analgesic agent; Z88.5 Allergy status to narcotic agent; Z88.8 Allergy status to other drugs, medicaments and biological substances; W18.39XA Other fall on same level, initial encounter; Y93.89 Activity, other specified; Y92.89 Other specified places as the place of occurrence of the external cause; Y99.8 Other external cause status

== ENCOUNTER 2021-01-10 18:38 | Inpatient (IN) | payer OTHER ==
[~2021-01-10] VITALS: Ht 152.4 cm; Wt 47.7 kg
[~2021-01-10 18:38] MED LIST changes: +DESYREL150 MG PO; +IBUPROFEN 400400 M2 PO; +MECLIZINE HCL25 M1 PO; +ONE-DAILY MULT1 EAC1 PO; +VITAMIN C500 M1 PO
[2021-01-10 21:43] VITALS: BP 129/77
[2021-01-10 21:55] LABS: URINE BILIRUBIN NEGATIVE (Negative); URINE BLOOD 1+ (Negative); URINE CLARITY CLEAR; URINE COLOR YELLOW; URINE GLUCOSE-RANDOM* NEGATIVE (Negative); URINE KETONES 1+ (Negative); URINE LEUKOCYTES-REFLEX NEGATIVE (Negative); URINE NITRITE-REFLEX NEGATIVE (Negative); URINE PROTEIN (DIPSTICK) NEGATIVE (Negative); URINE UROBILINOGEN 0.2 E.U./dl (0.2-1.0)
[2021-01-10 22:10] LABS: SQUAMOUS 0-3 Few /LPF (0-3)
[2021-01-10 22:11] LABS: BACTERIA-REFLEX 1-9 Few /HPF (None Seen); CASTS None Seen /LPF (None Seen); CRYSTALS None Seen /LPF (None Seen); MUCUS 0-3 Light strn/LPF (None Seen); URINE RBC 3-10 Few /HPF (0-2); URINE WBC-REFLEX 0-5 Rare /HPF (0-5)
[2021-01-10 22:15] LABS: ABSOLUTE NEUTROPHILS 6.8 thou/uL (1.4-8.2); BASOPHILS 0.4 % (0.0-2.0); HEMATOCRIT 33.4 % (37.0-47.0); HEMOGLOBIN 11.2 gm/dL (12.0-15.0); LYMPHOCYTES 5.4 % (24.0-44.0); MCH 29.8 pg (26.0-34.0); MCHC 33.5 g/dL (28.0-37.0); MCV 89.1 fL (80.0-100.0); MONOCYTES 9.6 % (1.0-8.0); PLATELET COUNT 228 thou/uL (150-400); POLYS 83.6 % (36.0-66.0); RBC 3.75 mil/uL (4.20-5.00); RDW 15.2 % (10.5-14.5); WBC 8.2 thou/uL (4.0-11.0)
[2021-01-10 22:17] LABS: CALCIUM 8.5 mg/dL (8.5-10.1); CREATININE 0.6 mg/dL (0.6-1.0); POTASSIUM 3.4 mmol/L (3.5-5.1)
[2021-01-10 23:24] VITALS: BP 172/81
--- NOTE | 2021-01-10 23:34 | NUR ---
THIS RN CALLED TO GIVE REPORT. WAS PLACED ON HOLD FOR 5 MINUTES. HUNG UP AND CALLED AGAIN, ONCE AGAIN PLACED ON HOLD. AFTER 5 MINUTES ON HOLD HUNG UP. WILL TRY AGAIN.
[2021-01-11] VITALS (7 sets, daily range): BP systolic 153–180; BP diastolic 81–99
--- NOTE | 2021-01-11 02:43 | NUR ---
PT ARRIVED TO THE UNIT AT AROUND 2345 HRS.PT IS ALERT AND ORIENTED WITH SOME FORGETFULNESS. PT SETTLED INTO ROOM AND GIVEN CALL LIGHT.SCDS IN PLACE. FLUIDS INFUSING. NPO AFTER MIDNOC.DHALIWAL TO D/D WITH LIGHT YELOW URINE.SLEEPING AT THIS TIME.
[2021-01-11 06:00] LABS: HEMATOCRIT 33.1 % (37.0-47.0); HEMOGLOBIN 10.9 gm/dL (12.0-15.0); MCH 29.6 pg (26.0-34.0); MCV 89.6 fL (80.0-100.0); RBC 3.7 mil/uL (4.20-5.00); RDW 15.6 % (10.5-14.5)
[2021-01-11 06:33] LABS: ALBUMIN 2.9 g/dL (3.4-5.0); CALCIUM 8.5 mg/dL (8.5-10.1); CREATININE 0.5 mg/dL (0.6-1.0); PHOSPHORUS 2.5 mg/dL (2.5-4.9); POTASSIUM 3.6 mmol/L (3.5-5.1)
--- NOTE | 2021-01-11 06:59 | EKG ---
[address] [place] [address] ELECTROCARDIOGRAM REPORT Name: NELIA ANSARI Room #: 435-P ADM IN M.R.#: [id number] Admission: 01/10/21 Attend Phys: Robbi Abraham MD Discharge: Date of : 46 Report #: [id number] [facility] ED Test Date: 2021-01-10 Test Time: 21:33:51 Pat Name: NELIA ANSARI Department: Room: [facility] Gender: F Stone Finisher: LEOBARDO : 1950 Requested By: Idania Lees Order Number: [id number] MD: Reji Lainez Measurements Intervals [place] Rate: 77 P: 75 ND: 145 QRS: 80 QRSD: 92 T: 91 QT: 412 QTc: 467 Interpretive Statements Sinus rhythm Nonspecific T abnrm, anterolateral leads Compared to ECG 12/28/2020 14:46:22 No significant changes Electronically Signed On 01-11-2021 6:59:27 CDT by Reji Lainez [email or web address] <ELECTRONICALLY SIGNED> By: Reji Lainez MD, [facility] 01/11/21 0659 32 32 Reji Lainez MD, FACC /EPI
--- NOTE | 2021-01-11 12:32 | NUR ---
ASSESSMENT: CM REVIEWED CHART AND SPOKE WITH PATIENT AT THE BEDSIDE. PT IS ADMITTED FROM [facility] ASSISTED LIVING DUE TO RIGHT FEMUR FX. PT USES A WALKER AT HER FACILITY. PT WAS JUST RECENTLY AT [facility] AND RETURNED BACK TO HER ASSISTED LIVING AND THEN FELL. PT REPORTS SHE IS NORMALLY ON 2-3L OF OXYGEN AT HER FACILITY. CM FAXED INFORMATION TO HER AL AND CONFIRMED THEY RECEIVED IT. CM MET WITH PATIENT AND DISCUSSED POSSIBLE NEED FOR SNF AT DISCHARGE AND ASKED IF SHE WANTS TO GO BACK TO [facility]. PT REPORTS SHE PREFERS TO GO BACK TO [facility] AND WANTS TO SEE HOW SHE DOES. CM LEFT VM WITH PATIENTS SON. CM WILL CONTINUE TO FOLLOW TO ASSIST NEEDED.
[2021-01-11 14:17] LABS: FOLIC ACID 12.4 ng/mL (8.6-58.9)
[2021-01-12 05:16] LABS: HEMATOCRIT 34.4 % (37.0-47.0); HEMOGLOBIN 11.4 gm/dL (12.0-15.0); MCH 29.4 pg (26.0-34.0); MCV 88.9 fL (80.0-100.0); RBC 3.87 mil/uL (4.20-5.00); RDW 15.1 % (10.5-14.5); WBC 7.3 thou/uL (4.0-11.0)
--- NOTE | 2021-01-12 05:21 | NUR ---
PT IS ALERT AND ORIENTED WITH SOME CONFUSION. R HIP WITH THE BULKY DRSG, ICE BROOKE APPLIED. PT BEEN C/O OF NAUSEA, GIVEN ZOFRAN X2 WITH RELIEF.PT HAS 02/2L/NC TO KEEP SATS OVER 92%-NO COUGH NOTED. SCDS IN PLACE AND R FOOT WITH GOOD CSM. FALL PREC IN PLACE.
[2021-01-12 07:45] VITALS: BP 165/94
--- NOTE | 2021-01-12 13:39 | NUR ---
ASSUMED PT CARE THIS AM. PT IS CONFUSED AND FORGETFUL. PT HAS L FA RUNNING LR @75ML/HR. PT HAS DHALIWAL CATH ON. PT C/O OF NAUSEA AND PAIN THIS AM. GIVEN NAUSEA AND PAIN MEDICATION THIS. RECHECK PT OF ANY NAUSEA AND PAIN AND DENIES THIS AFTERNOON. PT HAS BULKY DRESSING ON R HIP AND L FOOT DRESSING. PT TOLERATED MED WELL. PT ON THE BED WATHCING TV, BED ON THE LOWEST POSITION, SIDE RAILS UP, CALL LIGHT WITHIN REACH. WILL CONTINUE TO MONITOR PT. FOLLOW POC.
--- NOTE | 2021-01-12 13:57 | NUR ---
ON-GOING ASSESSMENT: cm reviewed chart. PT CONTINUES TO WORK WITH THERAPIES. PT WAS HOPEFUL TO GO BACK TO [facility] DIRECTLY AT DISCHARGE AND NOT NEED SNF BUT PT/OT RECOMMENDING SNF. CM DISCUSSED WITH PATIENT AND SHE REPORTS SHE IS AGREEABLE FOR SNF BUT DOES NOT WANT TO GO BACK TO [facility]. CM PROVIDED PATIENT WITH A [employer] SNF LIST FOR HER TO REVIEW AND SHE STATES TO CONTACT HER SON AND SHE IS UP FOR WHAT HE DECIDES. CM CONTACTED PATIENTS SON WHO IS DPOA BUT LIVES OUT OF STATE. CM EMAILED HIM AT LIST TO HIS EMAIL TE@[employer]. HE REQUESTED REFERRAL BE SENT TO [facility]. [facility] FAXED REFERRAL AND NOTIFIED [facility] TO PLEASE CHECK DAYS. CM AWAITING INPUT.
[2021-01-12 15:05] VITALS: BP 171/97
[2021-01-12 15:32] LABS: CALCIUM 8.4 mg/dL (8.5-10.1); CREATININE 0.6 mg/dL (0.6-1.0); MAGNESIUM 1.6 mg/dL (1.8-2.4); POTASSIUM 3.6 mmol/L (3.5-5.1)
[2021-01-12 19:25] VITALS: BP 153/86
[2021-01-13 04:14] VITALS: BP 153/84
[2021-01-13 05:05] LABS: HEMATOCRIT 30.9 % (37.0-47.0); HEMOGLOBIN 10.4 gm/dL (12.0-15.0); MCH 29.8 pg (26.0-34.0); MCHC 33.5 g/dL (28.0-37.0); MCV 88.8 fL (80.0-100.0); RBC 3.48 mil/uL (4.20-5.00); RDW 15.2 % (10.5-14.5); WBC 5.8 thou/uL (4.0-11.0)
--- NOTE | 2021-01-13 05:38 | NUR ---
PT ALERT TO SELF, WITH MOMENTS OF CONFUSION.GETTING DIULADID FOR PAIN. RLE WITH GOOD CAP REFILL AND WARMTH.R HIP WITH DRSG C/D/I.DHALIWAL TO D/D, GOOD U/O. AFEBRILE. FALL PREC IN PLACE.
[2021-01-13 05:53] LABS: CALCIUM 8.5 mg/dL (8.5-10.1); CREATININE 0.6 mg/dL (0.6-1.0); MAGNESIUM 1.6 mg/dL (1.8-2.4); POTASSIUM 3.2 mmol/L (3.5-5.1)
[2021-01-13 07:58] VITALS: BP 152/89
--- NOTE | 2021-01-13 10:17 | NUR ---
Assumed care of pt at 0700. Pt confused. IVF infusing. Dressing c/d/i. Up to chair with physical therapy. Denies pain. UA and chest xray ordered. Call light within reac. Fall precautions in place. Will continue to monitor.
[2021-01-13 12:17] LABS: URINE BILIRUBIN NEGATIVE (Negative); URINE BLOOD 2+ (Negative); URINE CLARITY CLEAR; URINE COLOR YELLOW; URINE GLUCOSE-RANDOM* NEGATIVE (Negative); URINE KETONES 2+ (Negative); URINE LEUKOCYTES NEGATIVE (Negative); URINE NITRITE NEGATIVE (Negative); URINE PROTEIN (DIPSTICK) NEGATIVE (Negative); URINE UROBILINOGEN 0.2 E.U./dl (0.2-1.0)
--- NOTE | 2021-01-13 12:31 | HC ---
[facility] [place] [address] CONSULTATION Name: NELIA ANSARI Room #: [facility] ADM IN M.R.#: [id number] Admission: 01/10/21 Attend Phys: Robbi Abraham MD Discharge: Date of : 46 Report #: [id number] THIS REPORT FOR: cc: Lukasz St MD, Darren E. MD Barry,Christian Bedolla MD ~ DATE OF SERVICE: 01/12/2021 INFECTIOUS DISEASE CONSULTATION ATTENDING PHYSICIAN: Dr. Abraham. REASON FOR EVALUATION: Positive COVID testing, it has been evident last 3 months with hilar mass. HISTORY OF PRESENT ILLNESS: Chart reviewed, patient examined. 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 Urinalysis was otherwise unremarkable. Coronavirus testing was found to be positive. Review of the record, based on previous test done here, has had a positive test dating as early as 10/07/2020, had a repeat positive test in 11/23/2020 as well. She notes her overall breathing is similar to baseline. In fact, she states supplemental oxygen is more necessary at other times. She denies any recent fevers or chills. She notes she has a poor appetite with weight loss. She did undergo operative repair with closed reduction and percutaneous pinning. She received perioperative antibiotics that have been discontinued. ALLERGIES: CODEINE, HYDROCODONE, OXYCODONE, ASPIRIN, ACETAMINOPHEN, PREDNISONE, DIPHENHYDRAMINE. CURRENT MEDICATIONS: Include cyanocobalamin, cholecalciferol, hydralazine, multivitamin, ascorbic acid, escitalopram, metoprolol, levothyroxine, trazodone, ipratropium and albuterol inhaler, ondansetron as needed, hydromorphone. PAST MEDICAL HISTORY: As described above, stage III small cell carcinoma, in remission, COPD, anxiety, hypertension, hypothyroidism, hyponatremia. SOCIAL HISTORY: Smokes cigarettes. No illicit drug use. No ethanol use. FAMILY HISTORY: Noncontributory. REVIEW OF SYSTEMS: Otherwise unremarkable with the exception of the above. [address] [address] CONSULTATION Name: NELIA ANSARI Room #: [address] [place] [address] IN M.R.#: [id number] Admission: 01/10/21 Attend Phys: Robbi Abraham MD Discharge: Date of : 46 Report #: [id number] PHYSICAL EXAMINATION: GENERAL: She appears chronically ill and undernourished, appears to have some degree of encephalopathy. VITAL SIGNS: Temperature 98.2, pulse 81, respirations 16, blood pressure 171/97. SKIN: Warm, dry, no rashes. HEENT: Otherwise, unremarkable. NECK: Supple. She has oxygen around her neck, but it is not in her nose. NECK: Supple. LUNGS: Diminished breath sounds. HEART: Regular, soft systolic murmur. ABDOMEN: Soft, nontender. Dressing placed in right lateral hip. RECTAL: Deferred. LABORATORY DATA: Electrolytes: Sodium 131, potassium 3.6, chloride 96, bicarbonate is 23, anion gap of 12, BUN and creatinine 7 and 0.6. CBC: White count 7.3, H and H 11.4 and 34.4, platelets of 211. Coronavirus testing was positive PCR. Chest x-ray compared to exam 12/28/2020, left lower lobe opacity, felt to be atelectasis or scarring, possible increased right hilar mass, emphysema. ASSESSMENT: Positive coronavirus testing. I think at this point, it is unlikely that there is any viable ___ any need for pursuing any additional diagnostic testing and/or therapy given the really sensitive nature of the testing, although it is possible she has some secondary issue like progressive pneumonitis or perhaps malignancy. I think based on CT of the chest in November did show a spiculated mass, would be notable was increasing in size at this point. We will add incentive spirometry in addition to repeat CT of the chest, otherwise holding antibiotics. <ELECTRONICALLY SIGNED> By: Christian White MD 01/13/21 1231 1633 53 Christian White MD /nt
[2021-01-13 13:01] LABS: CALCIUM OXALATE 0-3 Few /LPF (None Seen); CASTS None Seen /LPF (None Seen); SQUAMOUS 0-3 Few /LPF (0-3); URINE RBC 3-10 Few /HPF (0-2)
[2021-01-13 13:02] LABS: BACTERIA 1-9 Few /HPF (None Seen); URINE WBC None Seen /HPF (0-5)
--- NOTE | 2021-01-13 15:19 | NUR ---
ON-GOING ASSESSMENT: CM REVIEWED CHART. PT IS MORE ENCEPHALOPATHIC TODAY PER ATTENDING AND NOT READY FOR DISCHARGE. PT OCNTINUES TO WORK WITH THERAPIES AND RECOMMENDATION FOR SNF. CASSIE SPOKE WITH MIRANDA FROM [facility] AND THEY REPORT SINCE PT TESTED POSTIVIE FOR COVID ON 01/10 THEY WILL NOT ACCEPT HER AT THIS TIME. CM NOTIFIED THEM PATIENT HAS BEEN CLEARED BY ID AND NOT IN ISOLATION HERE AND THEY STATE THEY STILL CANNOT ACCEPT. CASSIE NOTIFIED PTS SON/DPOA DANIEL. HE REQUESTED REFERRAL TO [facility]. [facility]E SPOKE WITH [facility] WHO REPORTS THEY ARE ONLY ACCEPTING THEIR OWN PATIENTS AT THIS TIME. CASSIE SPOKE WITH SON AND HE REQUESTED REFERRAL TO [facility] AND [facility]. CM FAXED REFERRAL AND AWAITING IN PUT AT THIS TIME.
[2021-01-13 16:44] VITALS: BP 162/91
[2021-01-13 19:35] VITALS: BP 155/97
[2021-01-14 03:45] VITALS: BP 163/90
--- NOTE | 2021-01-14 04:00 | NUR ---
ALERT TO SELF, CONFUSED AND FORGETFUL. PT IS ICONTINENT. TAKES MEDS WELL. DRSG TO R HIP INTACT.
[2021-01-14 05:21] LABS: HEMATOCRIT 32.5 % (37.0-47.0); HEMOGLOBIN 10.9 gm/dL (12.0-15.0); MCH 29.6 pg (26.0-34.0); MCHC 33.5 g/dL (28.0-37.0); MCV 88.2 fL (80.0-100.0); RBC 3.69 mil/uL (4.20-5.00); WBC 5.5 thou/uL (4.0-11.0)
[2021-01-14 05:27] LABS: CALCIUM 8.2 mg/dL (8.5-10.1); CREATININE 0.4 mg/dL (0.6-1.0); POTASSIUM 3.4 mmol/L (3.5-5.1)
[2021-01-14 07:15] VITALS: BP 168/98
--- NOTE | 2021-01-14 10:05 | NUR ---
Assumed care of pt at 0700. Pt confused and very sleepy this am. Provider aware. 1L O2. IVF infusing. Dressing c/d/i. Waiting on SNF placement. Call light within reach. Fall precautions in place. Will continue to monitor.
--- NOTE | 2021-01-14 11:56 | NUR ---
on-going assessment: cm reviewed chart. CM RECEIVED CALL FROM [facility] STATING THEY CANNOT ACCEPT PATIENT. CM RECEIVED A VM FROM [facility] STATING THEY CANNOT MEDICALLY ACCEPT THE PATIENT TO SNF PENDING INSURANCE AUTH AND TO REACH OUT TO [facility] IN ADMISSIONS. CM FAXED [facility] UPDATED CLINICAL AND SPOKE WITH HIM VIA HIS CELL [phone]. CM NOTIFIED HIM PT IS MEDICALLY STABLE FOR DISCHARGE PENDING INSURANCE AUTH. CM NOTIFIED HIM PT HAS POSITIVE COVID TEST FROM 01/10 BUT PER ID IT PT IS NOT IN ISOLATION THEY FEEL THIS IS STILL REFLECTING PAST COVID RESULT OF BEING POSITIVE MONTHS PRIOR. CM AWAITING INPUT FROM [facility] ON INSURANCE AUTH AT THIS TIME. CM UPDATED PATIENTS SON DANIEL VIA PHONE CALL AT [phone]. CM ALSO UPDATED [facility] WHERE SHE RESIDES.
[2021-01-14 20:09] VITALS: BP 171/94
[2021-01-15 01:55] VITALS: BP 160/102
[2021-01-15 02:12] VITALS: BP 154/100
--- NOTE | 2021-01-15 02:37 | NUR ---
ASSUMED PT CARE AT 1900.PT ALERT/CONFUSED AND FORGETFUL.PT DENIED PAIN SO FAR.DRSG TO HER R HIP C/D/I.PT'S BP ELEVATED THIS SHIFT,PRN HYDRALAZINE GIVEN.PT HAD A BAD DREAM AND WOKE UP PANICKING DUE TO THE ROOM BEING DARK.EMOTIONAL SUPPORT GIVEN,THIS NUSRE SPENT TIME IN THE ROOM UNTIL PT WAS CALM.PT WITH NON PRODUCTIVE COUGH.PT INCONTINENT OB B&B.NAYELY CARE DONE WITH EACH INCONTINENCE.CALL LIGHT WITHIN REACH.
[2021-01-15 04:41] LABS: HEMATOCRIT 41.3 % (37.0-47.0); MCH 29.8 pg (26.0-34.0); MCHC 33.5 g/dL (28.0-37.0); MCV 88.8 fL (80.0-100.0); RBC 4.65 mil/uL (4.20-5.00); RDW 15.2 % (10.5-14.5); WBC 10.4 thou/uL (4.0-11.0)
[2021-01-15 04:43] LABS: CALCIUM 8.8 mg/dL (8.5-10.1); CREATININE 0.5 mg/dL (0.6-1.0); MAGNESIUM 1.7 mg/dL (1.8-2.4); POTASSIUM 3.5 mmol/L (3.5-5.1)
[2021-01-15 04:50] LABS: HEMOGLOBIN 13.8 gm/dL (12.0-15.0)
[2021-01-15 07:30] VITALS: BP 148/100
[2021-01-15 15:45] VITALS: BP 177/94
[2021-01-15 19:45] VITALS: BP 178/104
[2021-01-16 01:30] VITALS: BP 159/89
--- NOTE | 2021-01-16 01:50 | NUR ---
ASSUMED PT CARE AT 1900.PT WAS OBSERVED COUGHING AND IN THE PROCESS HAD EMESIS X1.PT WAS WHEEZING,RT TX GIVEN X1.PT INCONTINENT,NAYELY CARE DONE WITH EACH INCONTINENCE.PT ABLE TO REPOSITION SELF IN BED.PT'S IV WENT BAD,TRIED X3 NOT SUCCESSFUL,WILL NOTIFY THE ASPHALT HEATER OPERATOR.BP ELEVATED AT START OF SHIFT,PRN HYDRALAZINE GIVEN,EFFECTIVE.PO FLUIDS AND INCENTIVE SPIROMETER ENCOURAGED.CALL LIGHT WITHIN REACH.
[2021-01-16 05:10] LABS: HEMATOCRIT 35.7 % (37.0-47.0); HEMOGLOBIN 11.9 gm/dL (12.0-15.0); MCH 29.3 pg (26.0-34.0); MCHC 33.5 g/dL (28.0-37.0); MCV 87.5 fL (80.0-100.0); RBC 4.08 mil/uL (4.20-5.00); RDW 15.1 % (10.5-14.5); WBC 6.8 thou/uL (4.0-11.0)
[2021-01-16 05:19] LABS: CALCIUM 8.7 mg/dL (8.5-10.1); CREATININE 0.5 mg/dL (0.6-1.0)
[2021-01-16 05:32] LABS: MAGNESIUM 1.6 mg/dL (1.8-2.4)
[2021-01-16 07:00] VITALS: BP 181/115
[2021-01-16 13:58] LABS: URINE CREATININE-RANDOM* 46.3 mg/dL
[2021-01-16 15:57] VITALS: BP 146/66
[2021-01-16 20:44] VITALS: BP 131/80
--- NOTE | 2021-01-17 00:18 | NUR ---
PT AOX4, RESPONDING TO ORIENTATION PROMPTS APPROPRIATELY YET PT WITH INTERMITTENT CONFUSION AND FORGETFULNESS. PT CONVERSATION NONCONGRUENT. PT RESTLESS WITH TREMORS NOTED TO BUE. PT DENIES PAIN AND SOB WHILE ON ROOM AIR. PT WITH INTERMITTENT NONPRODUCTIVE COUGH. PT TOLERATING PO INTAKE OF FLUIDS AND REGULAR DIET WITHOUT ISSUE. PT WITHOUT NAUSEA OR EMESIS. DHALIWAL CATHETER MAINTAINED, PATENT, AND SECURED. PT RESTING IN BED THROUGHOUT SHIFT, FREQUENT REPOSITIONING ENCOURAGED WHILE IN BED. PT NOTED TO INDEPENDENTLY SHIFT SLIGHTLY, REPOSITIONING ASSISTANCE PROVIDED. PT DENIES NUMBNESS AND TINGLING, SENSATION INTACT, CAPILLARY REFILL LESS THAN 3SEC IN ALL EXTREMITIES. DRESSING TO RIGHT HIP CLEAN, DRY AND INTACT. PT ENCOURAGED TO NOTIFY STAFF FOR ALL NEEDS, CALL LIGHT WITHIN REACH, BED ALARM ON, BED LOCKED IN LOWEST POSITION, ROOM NEAR NURSES STATION, FREQUENT MONITORING WILL CONTINUE.
[2021-01-17 08:00] VITALS: BP 141/86
[2021-01-17 08:19] LABS: CALCIUM 8.8 mg/dL (8.5-10.1); CREATININE 0.6 mg/dL (0.6-1.0); MAGNESIUM 1.7 mg/dL (1.8-2.4); POTASSIUM 3.2 mmol/L (3.5-5.1)
--- NOTE | 2021-01-17 09:53 | NUR ---
Assumed care of pt at 0700. Pt alert and oriented only to self. Denies pain. Rodriguez catheter in place. No IV fluids. Will monitor labs. Fall precautions in place. Will continue to monitor.
--- NOTE | 2021-01-17 13:20 | NUR ---
ON-GOING ASSESSMENT: CM REVIEWED CHART AND SPOKE WITH BURTON IN ADMISSTIONS AT [facility] WHO REPORTS HE HAS AUTH TO ACCEPT PT. CM SPOKE WITH ATTENDING AND DUE TO HER SODIUM HE DOES NOT FEEL SHE IS STABLE TO D/C TODAY. CM FAXED UPDATED CLINICAL TO [facility] AND LEFT VM WITH BURTON IN ADMISSIONS TO SEE IF AUTH IS STILL GOOD THROUGH TOMORROW AND IF NOT CM FAXED UPDATED CLINICAL TO START THAT PROCESS AGAIN. CM LEFT A VM WITH PATIENTS SON DANIEL TO UPDATE. CM WILL CONTINUE TO FOLLOW TO ASSIST NEEDED.
[2021-01-17 16:43] VITALS: BP 133/71
[2021-01-17 19:01] VITALS: BP 106/67
--- NOTE | 2021-01-17 23:41 | NUR ---
I LOOKED OVER REASS DONE ON THIS PATIENT BY ALEJANDRO NARAYANAN LPN AND I CONCUR.
[2021-01-18 03:20] VITALS: BP 148/80
--- NOTE | 2021-01-18 05:03 | NUR ---
RESIDENT UP DURING ON COMING SHIFT ALERT WITH CONFUSION NO S/S OF PAIN OR DISCOMFORT NOTED. NOTED TO BE VERY RESTLESS LEGS HANGING OUT BED. SPEAKING WITH UNCLEAR SPEECH REPOSITION TO A COMFORTABLE POSITION. SLEPT THRU NOC UP X1 FOR HS MED.
[2021-01-18 05:29] LABS: CALCIUM 8.8 mg/dL (8.5-10.1); CREATININE 0.8 mg/dL (0.6-1.0); MAGNESIUM 1.8 mg/dL (1.8-2.4)
--- NOTE | 2021-01-18 07:02 | NUR ---
150CC OUTPUT THUR NOC . CALLED TO FITTER HELPER NEW ORDER TO BOLUS 500 CC N/S AND TO ENCOURAGE FLUIDS PO. IV INFUSING W/O DIFFICULTIES.
[2021-01-18 07:10] VITALS: BP 147/75
--- NOTE | 2021-01-18 09:42 | NUR ---
Assumed care of pt at 0700. Pt pleasantly confused. Rodriguez catheter in place. PO and IV potassium administered this am. Daily weight. Q2h turn. Assisted with meals. Call light within reach. Fall precautions in place. Will continue to monitor.
[2021-01-18] MEDS ORDERED: COLACE 100 MG100 MG PO (12:16)
[2021-01-18] MEDS ORDERED: MIRALAX17 GM PO (12:17)
[2021-01-18 14:05] LABS: CREATININE 0.8 mg/dL (0.6-1.0); MAGNESIUM 1.6 mg/dL (1.8-2.4)
[2021-01-18 14:07] LABS: POTASSIUM 4.4 mmol/L (3.5-5.1)
[2021-01-18 16:00] VITALS: BP 129/64
--- NOTE | 2021-01-18 16:30 | O ---
[facility] [place] [address] OPERATIVE REPORT Name: NELIA ANSARI Room #: 435-P ADM IN M.R.#: [id number] Admission: 01/10/21 Attend Phys: Robbi Abraham MD Discharge: Date of : 46 Report #: [id number] THIS REPORT FOR: cc: Lukasz St MD, Darren E. MD McCabe,Jarrod No MD ~ DATE OF SERVICE: 01/11/2021 SERVICE: Orthopedics. FACILITY: [place]. SURGEON: Jarrod Mayfield MD SHEET METAL ASSEMBLER AND RIVETER: None. PREOPERATIVE DIAGNOSIS: Valgus impacted right femoral neck fracture. POSTOPERATIVE DIAGNOSIS: Valgus impacted right femoral neck fracture. PROCEDURE: Closed reduction and percutaneous pinning, right hip femoral neck fracture. COMPLICATIONS: None. DRAINS: None. SPECIMENS: None. ANESTHESIA: General. FINDINGS: 6.3 mm cannulated screws x 3 measuring 70, 75, & 80 mm in length. HISTORY: The patient is a 70-year-old female who fell at her facility yesterday, landing on her right side, sustaining a valgus impacted right hip femoral neck fracture. She was indicated for surgical treatment. The risks, benefits, alternatives and indications for surgery were discussed with her as well as with her son who is her durable power of milk handler. Based on the fracture pattern she was indicated for femoral neck pinning. She had similar injury and similar treatment approach to the left hip approximately 2 months ago and is recovering from. PROCEDURE IN DETAIL: After right lower extremity was correctly identified in the preoperative holding area as the operative extremity, the patient was taken to the operating room where general anesthesia was induced without complication. [facility] [address] [place] [address] OPERATIVE REPORT Name: NELIA ANSARI Room #: 435-P ADM IN M.R.#: [id number] Admission: 01/10/21 Attend Phys: Robbi Abraham MD Discharge: Date of : 46 Report #: [id number] She was padded appropriately. Prophylactic antibiotics were administered at appropriate time. She was moved to the operating table and padded appropriately. C-arm was brought in to assess the alignment of the femoral neck fracture. This was in a valgus impacted position. We checked AP and lateral x-rays. No reduction maneuver was required or indicated. Right leg was prepped and draped in standard sterile fashion. Time-out procedure was performed. A 1-inch incision was made over the lateral aspect of the hip and then dissection was taken down to the lateral cortex of the femur. Under multiple planes of x-ray, guide pins were placed x 3. The first was placed in the inferior posterior position against the cortical edge, and then the second was placed anteriorly and proximally, and the third was placed posteriorly and proximally as well for an inverted triangle. The guide pins were then measured for length. We placed the inferior screw first, drilled the near cortex, and then placed the screw under power and then finished under manual. Excellent fixation really was felt to be obtained with the screws, even given her history of 2 recent hip fractures. Proceed in a similar fashion with the second and third; the most inferior screw was a 70 mm in length, the more proximal screw was 75 mm and the middle screw was 80 mm. All 3 screws obtained good purchase. We checked final x-rays to ensure that good stable fixation with appropriate hardware position have been achieved. The wound was copiously irrigated and then the IT band was closed with 0 Vicryl suture and then the skin was closed with 2-0 Vicryl followed by betina. A sterile dressing was applied. The patient was awakened from anesthesia and taken to recovery room in stable condition. There were no complications. All counts were correct. <ELECTRONICALLY SIGNED> By: Jarrod Mayfield MD 01/18/21 1630 [id number] Jarrod Mayfield MD /nt
[2021-01-18 20:05] VITALS: BP 144/69
--- NOTE | 2021-01-19 05:04 | NUR ---
ASSUMED PT CARE AT 1900.PT ALERT/CONFUSED AND FORGETFUL.R HIP DRSG C/D/I.PT'S SODIUM STILL LOW, PT ON PO REPLACEMENT.DHALIWAL CATH TO DD.PT ABLE TO REPOSITION SELF IN BED.CALL LIGHT WITHIN REACH.
[2021-01-19 05:54] LABS: CALCIUM 8.3 mg/dL (8.5-10.1); CREATININE 0.5 mg/dL (0.6-1.0); MAGNESIUM 1.5 mg/dL (1.8-2.4); POTASSIUM 4.1 mmol/L (3.5-5.1)
[2021-01-19 08:00] VITALS: BP 153/79
--- NOTE | 2021-01-19 11:23 | NUR ---
ON-GOING ASSESSMENT: CM REVIEWED CHART AND SPOKE WITH ATTENDING. PTS SODIUM IS 124 AND NOT STABLE FOR DISCHARGE AT TIME. CM REQUESTED OFFICE MACHINE INSTALLER TO SEND UPDATED CLINICAL TO [facility] THEY ARE RESUBMITTING FOR INSURANCE AUTH. CM CONTACTED PATIENTS SON DANIEL TO NOTIFY HIM. CM WILL CONTINUE TO FOLLOW TO ASSIST NEEDED.
[2021-01-19 12:00] VITALS: BP 115/83
[2021-01-19 15:00] VITALS: BP 154/64
--- NOTE | 2021-01-19 16:13 | NUR ---
FAXED CLINICAL UPDATE TO [facility] RECEIVED CONFIRMATION AND LEFT MSG WITH ADM.
[2021-01-19 18:53] VITALS: BP 149/67
--- NOTE | 2021-01-19 19:46 | NUR ---
Assumed pt care at 7am.Pt in bed most of the time this shift.Assessment completed.vss.Assisted pt with tray setup at all meals.Poor appetite noted. Dr Davalos and Donovan here,new order noted.Fall precaution in place. Adequate u/o noted.No verbal c/o.Wi ll continue to monitor.
[2021-01-20 03:59] VITALS: BP 133/64
[2021-01-20 05:23] LABS: HEMATOCRIT 33.2 % (37.0-47.0); HEMOGLOBIN 11.1 gm/dL (12.0-15.0); MCH 29.1 pg (26.0-34.0); MCHC 33.4 g/dL (28.0-37.0); MCV 87.2 fL (80.0-100.0); RBC 3.81 mil/uL (4.20-5.00); RDW 15.4 % (10.5-14.5); WBC 6.6 thou/uL (4.0-11.0)
--- NOTE | 2021-01-20 05:33 | NUR ---
I CONCUR WITH THE CHARTING BY ALEJANDRO NARAYANAN LPN.
--- NOTE | 2021-01-20 05:42 | NUR ---
pt alert x2 up during oncoming rounds.pt non conpliant refused hs meds. slept thru noc. no c/o pain or discomfort.
[2021-01-20 05:47] LABS: CALCIUM 8.3 mg/dL (8.5-10.1); CREATININE 0.4 mg/dL (0.6-1.0); MAGNESIUM 1.6 mg/dL (1.8-2.4); POTASSIUM 3.8 mmol/L (3.5-5.1)
--- NOTE | 2021-01-20 05:48 | NUR ---
pt refused 0600 meds
[2021-01-20 07:06] VITALS: BP 152/83
--- NOTE | 2021-01-20 14:06 | NUR ---
ON-GOING ASSESSMENT: CM REVIEWED CHART. PTS SODIUM REMAINS LOW. CM FAXED UPDATED CLINICAL TO [facility] TO UPDATE THEM AND LEFT VM WITH ADMISSIONS STATING TO PLEASE CONTINUE TO SEEK INSURANCE AUTH WITH ANTICIPATED D/C TOMORROW IF SODIUM IS BETTER. CM WILL CONTINUE TO FOLLOW.
[2021-01-20 15:37] VITALS: BP 143/72
--- NOTE | 2021-01-20 18:30 | NUR ---
PT ASSESSED AT START OF SHIFT. PT CALM BUT REFUSING TO EAT OR TAKE HER MEDS. CONFUSION WORSE FROM 3 DAYS AGO. SAT UP IN THE CHAIR FOR FEW HOURS. VERY CONVERSENT BUT NOT MAKING MUCH SENSE. DID MANAGE TO CONVINCE PT TO TAKE 2 OF HER MEDS AND THAT WAS ALL SHE WOULD TAKE.
[2021-01-20 19:12] VITALS: BP 118/60
[2021-01-21 05:06] LABS: ALBUMIN 2.8 g/dL (3.4-5.0); CALCIUM 8.8 mg/dL (8.5-10.1); CREATININE 0.5 mg/dL (0.6-1.0); PHOSPHORUS 3.2 mg/dL (2.5-4.9); POTASSIUM 3.7 mmol/L (3.5-5.1)
--- NOTE | 2021-01-21 06:01 | NUR ---
I CONCUR WITH THE CHARTING BY ALEJANDRO NARAYANAN LPN
--- NOTE | 2021-01-21 06:15 | NUR ---
PT SLEPT THRU NOC. NO C/O PAIN OR DISCOMFORT THRU NOC. REEDUCATION ON TAKING MEDICATION.PT REFUSED AM MEDS.
[2021-01-21 07:31] VITALS: BP 128/75
[2021-01-21] MEDS ORDERED: LASIX 20 MG TAB20 MG PO ×2 (08:43→08:45)
[2021-01-21] MEDS ORDERED: SODIUM CHLORI1000 MG PO (08:43)
--- NOTE | 2021-01-21 11:45 | NUR ---
ASSUMED PT CARE AROUND 0700. PT ALERT X ORIENTED X1, CONFUSED. ON ROOM AIR. IV RT AC. UMU AT RT HIP, SKIN INTACT. DHALIWAL CATHETER IN PLACE.NO C/O PAIN. HAD A BM TODAY.FALL PRECAUTION IN PLACE. CALL LIGHT IN REACH. FALL EDUCATION PROVIDED. WILL CONTINUE TO MONITOR.
--- NOTE | 2021-01-21 13:44 | NUR ---
on-going assessment: CASSIE REVIEWED CHART. PTS SODIUM HAS IMPROVED AND PHYSICIAN STATING POSSIBLE DISCHARGE TODAY. CASSIE NOTIFIED BURTON IN ADMISSIONS AT [facility] WHO REPORTS THEY ARE JUST AWAITING INSURANCE AUTH. CASSIE ALSO NOTIFIED LIASON VIA EMAIL FROM [facility] THAT WE ARE ATTEMPTING AUTH. SHE REPORTS THE FIRST AUTH AND [facility] REQUESTED A CHANGE IN DATE TO ORIGINAL AUTH BUT NEED TO START A NEW REQUEST. CASSIE NOTIFIED BURTON IN ADMISSIONS AT [facility] AND HE REPORTS HE WILL LOOK INTO THIS. CASSIE FAXED UPDATED CLINICAL TO [facility]. CASSIE ALSO UPDATED PATIENTS SON DANIEL [phone]. HE REQUEST TO BE CALLED IF PATIENT IS ABLE TO DISCHARGE OVER THE WEEKEND. AWAITING INSURANCE AUTH AT THIS TIME. ADMISSIONS AT [facility] CAN BE REACHED AT [phone].
[2021-01-21 16:59] VITALS: BP 132/64
[2021-01-21 20:30] VITALS: BP 124/64
[2021-01-21 22:34] VITALS: BP 124/64
--- NOTE | 2021-01-22 01:02 | NUR ---
PT AOX3, TO PERSON, PLACE, AND TIME OF DAY. PT NOTED TO BE PLEASANTLY CONFUSED WITH INTERACTIONS, HAVING INCONGRUENT CONVERSATIONS. PT REFUSING HS MEDICATIONS. PT DENIES PAIN AND SOB WHILE ON ROOM AIR. FLACC OF 0. PT TOLERATING PO INTAKE OF FLUIDS AND REGULAR DIET WITHOUT ISSUE, PO INTAKE NOTED TO BE DECREASED. PT WITHOUT NAUSEA OR EMESIS. PT INCONTINENT OF B0WEL, DHALIWAL REMAINS IN PLACE, PATENT. PT RESTING IN BED THROUGHOUT SHIFT, FREQUENT REPOSITIONING ENCOURAGED. PT NOTED TO INTERMITTENTLY AND INDEPENDENTLY SHIFT IN BED, REPOSITIONING ASSISTANCE CONTINUES TO BE PROVIDED. PT ENCOURAGED TO NOTIFY STAFF FOR ALL NEEDS, CALL LIGHT WITHIN REACH, BED ALARM ON, BED LOCKED IN LOWEST POSITION, ROOM REMAINS NEAR NURSES STATION, FREQUENT MONITORING WILL CONTINUE.
[2021-01-22 08:22] VITALS: BP 128/79
[2021-01-22 10:34] LABS: ALBUMIN 3.1 g/dL (3.4-5.0); CALCIUM 8.8 mg/dL (8.5-10.1); CREATININE 0.6 mg/dL (0.6-1.0); PHOSPHORUS 3.4 mg/dL (2.6-4.7); POTASSIUM 4.5 mmol/L (3.5-5.1)
--- NOTE | 2021-01-22 12:32 | NUR ---
ASSUMED PT CARE AROUND 0700. PT ALERT X ORIENTED X2, CONFUSED. ON ROOM AIR. IV RT AC SALINE LOCKED. UMU ON RT HIP. NO C/O PAIN OR VERTIGO. REFUSED MORNING PILLS AT FIRST, BUT LATER TOOK ONE BY ONE. SOME TIMES IMPULSIVE,TRYING TO GET OUT OF CHAIR SAYING "I NEED TO GO HOME OR WHEREVER, NEED TO GET OUT OF HERE". SOMETIMES SITTING CALMLY IN CHAIR. RN TRIED CALLING PT'S SON TO UPDATE ABOUT HER, BUT IT WAS SAYING THE NUMBERHAS BEEN CHANGED/DISCONNECTED. FALL PRECAUTION IN PLACE. DC PENDING, CM NOTE SAYING WAITING FOR INSURANCE AUTHORISATION. WILL CONTINUE TO MONITOR.
[2021-01-22 13:04] LABS: URINE BILIRUBIN NEGATIVE (Negative); URINE BLOOD 2+ (Negative); URINE COLOR YELLOW; URINE GLUCOSE-RANDOM* NEGATIVE (Negative); URINE KETONES NEGATIVE (Negative); URINE LEUKOCYTES 3+ (Negative); URINE NITRITE POSITIVE (Negative); URINE PROTEIN (DIPSTICK) NEGATIVE (Negative); URINE UROBILINOGEN 0.2 E.U./dl (0.2-1.0)
[2021-01-22 13:05] LABS: URINE CLARITY CLOUDY
[2021-01-22 13:15] LABS: CASTS None Seen /LPF (None Seen); MUCUS 0-3 Light strn/LPF (None Seen); SQUAMOUS 0-3 Few /LPF (0-3)
[2021-01-22 13:16] LABS: AMORPHOUS PHOSPHATES Few /LPF (None Seen); URINE RBC 3-10 Few /HPF (NONE SEEN); URINE WBC 6-15 Few /HPF (NONE SEEN)
[2021-01-22 13:17] LABS: URINE CREATININE-RANDOM* 52.3 mg/dL
[2021-01-22 16:28] VITALS: BP 145/75
[2021-01-22 19:25] VITALS: BP 119/52; BP 124/66
--- NOTE | 2021-01-23 02:23 | NUR ---
ASSUMED CARE AT 1900. PT IS A/O X1 AND IS UP WITH ASSISTANCE USING WALKER AND GB. ROOM AIR. VSS. AFEBRILE. DHALIWAL IN PLACE AND DRAINING YELLOW URINE. HAS HAD AN EPISODE OF INCONTINENCE OF STOOL. UMU TO RIGHT HIP ARE IN PLACE AND OPEN TO AIR. NO DRAINAGE NOTED. MEDICATIONS GIVEN PER MAR. PT IS PLEASANT AND COOPERATIVE WITH SOME CONFUSION. FALL PRECAUTIONS IMPLEMENTED, CALL LIGHT IS WITHIN REACH. PT IN ROOM NEAR NURSES STATION WITHIN FREQUENT CHECKS. WILL CONTINUE TO MONITOR.
[2021-01-23 07:50] VITALS: BP 126/70
[2021-01-23 08:40] LABS: CALCIUM 8.8 mg/dL (8.5-10.1); CREATININE 0.6 mg/dL (0.6-1.0); PHOSPHORUS 3.4 mg/dL (2.6-4.7); POTASSIUM 3.7 mmol/L (3.5-5.1)
--- NOTE | 2021-01-23 12:19 | NUR ---
ASSUMED PT CARE AROUND 0700. PT ALERT X ORIENTED X 2,CONFUSED.ON ROOM AIR. UMU ON LEFT HIP. IV RT AC DC'D IT WAS NOT FLUSHING. NEW IV AT FOREARM WITH ANIBIOTICS RUNNING. TOOK SOME OF THE MORNING MEDS AND REFUSED A FEW. POOR EATING AND DRINKING. ENCOURAGING INTAKE OF FLUIDS AND FOOD. FALL PRECAUTION IN PLACE. WILL CONTINUE TO MONITOR.
[2021-01-23 16:10] VITALS: BP 126/66
[2021-01-23 18:58] VITALS: BP 133/75
--- NOTE | 2021-01-24 03:39 | NUR ---
ASSUMED PT CARE AT 1900.PT ALERT/FORGETFUL AND PLEASANTLY CONFUSED.PT TOOK ALL HER HS MEDS IN PUDDING WITH NO PROBLEM.OFFERED PO FLUIDS AND SNACK,PT REF.ISRA TO DD.PT SLEEPING ON HER BED AT THIS TIME.CALL LIGHT WITHIN REACH.
[2021-01-24 03:58] VITALS: BP 158/83
[2021-01-24 05:55] LABS: ALBUMIN 2.8 g/dL (3.4-5.0); CALCIUM 8.5 mg/dL (8.5-10.1); CREATININE 0.6 mg/dL (0.6-1.0); PHOSPHORUS 3.6 mg/dL (2.6-4.7); POTASSIUM 3.8 mmol/L (3.5-5.1)
[2021-01-24 07:40] VITALS: BP 148/79
--- NOTE | 2021-01-24 11:32 | NUR ---
Received awake on bed. Due medications given as prescribed, crushed meds and mixed with pudding. On MS, not on telemetry; no complains and signs of chest pain, crushing sensation and heaviness. Patient confused; re-oriented from time to time. On room air. Vital signs stable. On regular diet- encouraged and assisted in eating and drinking; on 1500ml fluid restriction; no nausea, no vomiting and no abdominal pain noted. Falls bundle in place. With tiwari in place- draining well; output measured and recorded accordingly. S/P R hip surgery- betina in place; open to air; no bleeding and no drainage noted. No complains and signs of pain made during assessment. With SL at R FA- on IV antibiotics. To continue monitoring patient. Pt seen and examined by Dr Man this AM, IV antibiotics to be changed to PO- physician informed that pt pulled out IV multipled times. Still a/w insurance authorization for SNF.
--- NOTE | 2021-01-24 11:45 | NUR ---
ON-GOING ASSESSMENT: CM REVIEWED CHART AND SPOKE WITH ATTENDING. PT IS STABLE FOR DISCHARGE TO SNF TODAY. CM FAXED UPDATED CLINICAL TO [facility] AND SPOKE WITH BURTON IN ADMISSIONS WHO REPORTS THEY WERE WAITING ON AUTH. CASSIE THEN RECEIVED A CALL FROM BURTON STATING THAT SNF HAS BEEN DENIED AND A PEER TO PEER IS OFFERED BY 4:30 TODAY BY CALLING [phone] OPT 4 REF#[id number]. CM CONTACTED THAT NUMBER AND SPOKE WITH LEEANNE AND SCHEDULED PEER TO PEER TODAY FOR DR. MCKEE AT 1430. THEIR PHYSICIAN WILL CONTACT DR. MCKEE. CM NOTIFIED DR. MCKEE. AWAITING PEER TO PEER DETERMINATION AT THIS TIME.
[2021-01-24 15:59] VITALS: BP 131/64
== END 2021-01-24 17:30 | DRG 480 ==
LOC: ER 18:38 → EROBS 22:08 → 4S 22:08
PROVIDERS: Emergency Medicine; Hospitalist; Internal Medicine; Internal Medicine Nephrology; Orthopaedic Surgery Sports Medicine; ADMIT Surgery; ATTEND Surgery
PROC: 0QS634Z Reposition Right Upper Femur with Internal Fixation Device, Percutaneous Approach (ICD-10-PCS; principal; 2021-01-11)
DX: S72.091A Other fracture of head and neck of right femur, initial encounter for closed fracture (principal); U07.1 COVID-19; C34.90 Malignant neoplasm of unspecified part of unspecified bronchus or lung; D62 Acute posthemorrhagic anemia; E87.1 Hypo-osmolality and hyponatremia; W19.XXXA Unspecified fall, initial encounter; E55.9 Vitamin D deficiency, unspecified; E53.8 Deficiency of other specified B group vitamins; E87.6 Hypokalemia; F41.9 Anxiety disorder, unspecified; I10 Essential (primary) hypertension; E03.9 Hypothyroidism, unspecified; J44.9 Chronic obstructive pulmonary disease, unspecified; W18.39XA Other fall on same level, initial encounter; Z91.81 History of falling; Z79.899 Other long term (current) drug therapy; Z88.5 Allergy status to narcotic agent; Z88.8 Allergy status to other drugs, medicaments and biological substances; Y93.89 Activity, other specified; Y92.89 Other specified places as the place of occurrence of the external cause; Y99.8 Other external cause status
CPT/HCPCS: 10102; 50010; 50101; 50386; 51412; 51538; 53400; 56524; 57092; 62110; 62900; 70005

== ENCOUNTER 2021-03-03 22:37 | Emergency (ER) | payer OTHER ==
[~2021-03-03] VITALS: Ht 152.4 cm; Wt 49.2 kg
[~2021-03-03 22:37] MED LIST changes: +COLACE 100 MG100 MG PO; +LASIX 20 MG TAB20 MG PO; +MIRALAX17 GM PO; +SODIUM CHLORI1000 MG PO
[2021-03-03 23:32] LABS: ABSOLUTE NEUTROPHILS 2.6 thou/uL (1.4-8.2); EOSINOPHILS 1.6 % (0.0-3.0); HEMATOCRIT 33.2 % (37.0-47.0); HEMOGLOBIN 10.9 gm/dL (12.0-15.0); LYMPHOCYTES 15.3 % (24.0-44.0); MCH 29.5 pg (26.0-34.0); MCHC 32.8 g/dL (28.0-37.0); MCV 89.7 fL (80.0-100.0); MONOCYTES 16.8 % (1.0-8.0); PLATELET COUNT 282 thou/uL (150-400); POLYS 65.3 % (36.0-66.0); RDW 16.3 % (10.5-14.5); WBC 3.9 thou/uL (4.0-11.0)
[2021-03-03 23:47] LABS: ANION GAP 8 mmol/L (7-16); BUN 9 mg/dL (7-18); CALCIUM 9.4 mg/dL (8.5-10.1); CHLORIDE 95 mmol/L (98-107); CO2 25 mmol/L (21-32); CREATININE 0.5 mg/dL (0.6-1.0); GLUCOSE 99 mg/dL (74-106); POTASSIUM 3.9 mmol/L (3.5-5.1); SODIUM 128 mmol/L (136-145)
[2021-03-03 23:57] LABS: ALBUMIN 3.4 g/dL (3.4-5.0); SGOT 27 U/L (15-37); SGPT 14 U/L (14-59); TOTAL BILIRUBIN 0.5 mg/dL (0.2-1.0); TOTAL PROTEIN 7.8 g/dL (6.4-8.2); TROPONIN-I <0.06 ng/mL (<0.06)
[2021-03-04 00:59] LABS: URINE BILIRUBIN NEGATIVE (Negative); URINE BLOOD TRACE (Negative); URINE CLARITY CLEAR; URINE COLOR YELLOW; URINE GLUCOSE-RANDOM* NEGATIVE (Negative); URINE KETONES TRACE (Negative); URINE LEUKOCYTES-REFLEX NEGATIVE (Negative); URINE NITRITE-REFLEX NEGATIVE (Negative); URINE PROTEIN (DIPSTICK) NEGATIVE (Negative); URINE UROBILINOGEN 0.2 E.U./dl (0.2-1.0)
[2021-03-04] MEDS ORDERED: MECLIZINE HCL25 M1 PO (01:32)
[2021-03-04 01:45] VITALS: BP 155/80
--- NOTE | 2021-03-04 07:00 | EKG ---
[place] [address] [facility] [place] [address] ELECTROCARDIOGRAM REPORT Name: NELIA ANSARI [id number] Admission: 03/03/21 Attend Phys: Discharge: 03/04/21 Date of : 46 Report #: [id number] [facility] ED Test Date: 2021-03-03 Test Time: 23:08:24 Pat Name: NELIA ANSARI Department: Room: Gender: F Weigher Production: jay champion : 1950 Requested By: Everardo Kessler Order Number: [id number] MD: Reji Lainez Measurements Intervals [place] Rate: 79 P: 65 KS: 195 QRS: 70 QRSD: 88 T: 62 QT: 388 QTc: 445 Interpretive Statements Sinus rhythm Left atrial enlargement Probable left ventricular hypertrophy Compared to ECG 01/10/2021 21:33:51 Atrial abnormality now present Electronically Signed On 03-04-2021 7:00:09 CDT by Reji Lainez [email or web address] <ELECTRONICALLY SIGNED> By: Reji Lainez MD, [facility] 03/04/21 0700 [id number] Reji Lainez MD, FACC /EPI
== END 2021-03-04 03:00 | disposition home or self-care (01) ==
LOC: ER 22:37
PROVIDERS: Emergency Medicine
DX: R42 Dizziness and giddiness (principal); J44.9 Chronic obstructive pulmonary disease, unspecified; I10 Essential (primary) hypertension; E03.9 Hypothyroidism, unspecified; Z85.118 Personal history of other malignant neoplasm of bronchus and lung; Z88.6 Allergy status to analgesic agent; Z88.5 Allergy status to narcotic agent; Z88.8 Allergy status to other drugs, medicaments and biological substances

== ENCOUNTER 2021-03-07 02:05 | Emergency (ER) | payer OTHER ==
[~2021-03-07] VITALS: Ht 152.4 cm; Wt 42.2 kg
[2021-03-07] MEDS ORDERED: ULTRAM 50MG TAB50 MG PO (04:20)
[2021-03-07 06:00] VITALS: BP 157/75
== END 2021-03-07 06:01 | disposition home or self-care (01) ==
LOC: ER 02:05
DX: S22.41XA Multiple fractures of ribs, right side, initial encounter for closed fracture (principal); R91.8 Other nonspecific abnormal finding of lung field; J44.9 Chronic obstructive pulmonary disease, unspecified; I10 Essential (primary) hypertension; E03.9 Hypothyroidism, unspecified; Z88.6 Allergy status to analgesic agent; Z88.5 Allergy status to narcotic agent; Z79.899 Other long term (current) drug therapy; W18.09XA Striking against other object with subsequent fall, initial encounter; Y93.89 Activity, other specified; Y92.89 Other specified places as the place of occurrence of the external cause; Y99.9 Unspecified external cause status

== ENCOUNTER 2021-04-06 05:13 | Emergency (ER) | payer OTHER ==
[~2021-04-06] VITALS: Ht 154.9 cm; Wt 44.5 kg
--- NOTE | ~2021-04-06 | EMS ---
[place] [address] EMS Patient Care Report Name: NELIA ANSARI Room #: PRE M.R.#: [id number] Admission: Attend Phys: Discharge: Date of : 46 Report #: [id number] THIS REPORT FOR: //name// Report Transmitted: 04/06/2021 05:00 EMS Care Summary [place], [place]/[facility] Incident [id number] @ 04/06/2021 04:47 Incident Location [id number] [place] [address] Patient NELIA ANSARI Female, 70 Years 1950 Patient Address [address] [place] [address] Patient History Other,Chronic Obstructive Pulmonary Disease (COPD),Dementia,Lung Cancer,Hip Fracture,Novel Coronavirus (COVID-19), Patient Allergies Acetaminophen,Codeine,Hydrocodone,Diphenhydramine,Prednisone,Oxycodone, Patient Medications Ibuprofen, Loperamide, Metoprolol, Levothyroxine, Albuterol, Lorazepam, Tramadol, Chief Complaint COUGH Disposition Transported No Lights/[place] Dispatch Reason Breathing Problem Transported To [facility] Narrative RESPONDED TO BREATHING PROBLEMS AT [facility]. UPON ARRIVAL PT FOUND AT DOOR IN WHEELCHAIR WITH P28 CREW. PT IS ALERT AND ORIENTED. PT REPORTS DEVELOPING A COUGH OVER 12 HOURS THAT IS DRY AND PERSISTENT. [place] [address] EMS Patient Care Report Name: NELIA ANSARI Room #: [facility]..#: [id number] Admission: Attend Phys: Discharge: Date of : 46 Report #: [id number] SIMILAR TO CROUP; MUCH LIKE A BARKING SEAL. PT ALREADY IN MASK. ALL CREWS TOOK COVID PRECAUTIONS. PT PIVOTS TO COT FORM WHEELCHAIR. PT NOT NORMALLY ON O2 BUT P28 PLACED NC ON PT. PT LUNG SOUNDS MILD WHEEZING AND O2 SATS AT NORMAL RANGE. PT TRANSPORTED TO [facility] WITH NO CHANGES. PT TEAM LIFTED TO COT AND HANDRAILS UP. REPORT GIVEN TO NURSE. Initial Vitals @05:10P: 88,R: 18,BP: 160/98,GCS: 15,SpO2: 96,Revised Trauma: 12, @05:05P: 86,R: 18,BP: 158/100,Pain: 0/10,GCS: 15,SpO2: 96,Revised Trauma: 12, Assessments @05:02MENTAL:Person Oriented,Time Oriented,Event Oriented,Place Oriented,SKIN:HEENT:Head/Face: No Abnormalities,Eyes: No Abnormalities,Neck/Airway: No Abnormalities,LUNG SOUNDS:General: No Abnormalities,Left Upper: No Abnormalities,Right Upper: No Abnormalities,Left Lower: No Abnormalities,Right Lower: No Abnormalities,ABDOMEN:General: No Abnormalities,Left Upper: No Abnormalities,Right Upper: No Abnormalities,Left Lower: No Abnormalities,Right Lower: No Abnormalities,PELVIS//GI:No Abnormalities,EXTREMITIES:Left Arm: No Abnormalities,Right Arm: No Abnormalities,Left Leg: No Abnormalities,Right Leg: No Abnormalities,PULSE:NEURO:No Abnormalities, Impression Cough Procedures @05:02ALS AssessmentResponse: UnchangedSucceeded Timeline 04:46,Call Received 04:46,Dispatch Notified 04:47,Dispatched 04:50,En Route 05:00,On Scene 05:02,At Patient 05:02,ALS Assessment,Response: UnchangedSucceeded, 05:04,Depart Scene 05:05,BP: 158/100 M,PULSE: 86,RR: 18 R,SPO2: 96 Ox,ETCO2: ,BG: ,PAIN: 0,GCS: 15, 05:10,BP: 160/98 M,PULSE: 88,RR: 18 R,SPO2: 96 Ox,ETCO2: ,BG: ,PAIN: ,GCS: 15, 05:10,At Destination 05:26,Call Closed Disclaimer v1.1 Copyright 2020 [employer] This EMS Care Summary contains data elements from the [place] [address] EMS Patient Care Report Name: NELIA ANSARI Room #: [facility] M.R.#: [id number] Admission: Attend Phys: Discharge: Date of : 46 Report #: [id number] (which may be displayed differently). It is designed to provide pertinent information for the following purposes: continuity of care, clinical quality, and state data reporting. The complete legal record is available to ED staff and administrators of the receiving hospital in [facility]'s Patient Tracker. All data is provided "as is."
[~2021-04-06 05:13] MED LIST changes: +ULTRAM 50MG TAB50 MG PO
[2021-04-06 05:52] LABS: ABSOLUTE NEUTROPHILS 5.4 thou/uL (1.4-8.2); BASOPHILS 0.7 % (0.0-2.0); EOSINOPHILS 4.3 % (0.0-3.0); HEMATOCRIT 32.1 % (37.0-47.0); HEMOGLOBIN 10.9 gm/dL (12.0-15.0); LYMPHOCYTES 5.8 % (24.0-44.0); MCH 30.6 pg (26.0-34.0); MCHC 34.1 g/dL (28.0-37.0); MCV 89.7 fL (80.0-100.0); MONOCYTES 12.2 % (1.0-8.0); PLATELET COUNT 229 thou/uL (150-400); RBC 3.58 mil/uL (4.20-5.00); RDW 15.5 % (10.5-14.5)
[2021-04-06 05:55] LABS: ANION GAP 7 mmol/L (7-16); BUN 11 mg/dL (7-18); CALCIUM 8.5 mg/dL (8.5-10.1); CHLORIDE 99 mmol/L (98-107); CO2 29 mmol/L (21-32); CREATININE 0.7 mg/dL (0.6-1.0); GLUCOSE 93 mg/dL (74-106); POTASSIUM 3.8 mmol/L (3.5-5.1); SODIUM 135 mmol/L (136-145)
[2021-04-06 06:05] LABS: ALBUMIN 2.9 g/dL (3.4-5.0); SGOT 22 U/L (15-37); SGPT 14 U/L (14-59); TOTAL BILIRUBIN 0.3 mg/dL (0.2-1.0); TOTAL PROTEIN 7.3 g/dL (6.4-8.2); TROPONIN-I <0.06 ng/mL (<0.06)
[2021-04-06] MEDS ORDERED: TESSALON PERLE100 MG PO (06:25)
[2021-04-06] MEDS ORDERED: ZPAK PO (06:25)
[2021-04-06 07:12] VITALS: BP 151/86
--- NOTE | 2021-04-06 07:14 | EKG ---
[address] [place] [address] ELECTROCARDIOGRAM REPORT Name: NELIA ANSARI [id number] Admission: 04/06/21 Attend Phys: Discharge: Date of : 46 Report #: [id number] [facility] ED Test Date: 2021-04-06 Test Time: 06:31:52 Pat Name: NELIA ANSARI Department: Room: Gender: F Plan Checker: genesis : 1950 Requested By: Everardo Kessler Order Number: [id number] MD: Reji Lainez Measurements Intervals [place] Rate: 92 P: 60 [place]: 158 QRS: 44 QRSD: 85 T: 42 QT: 397 QTc: 492 Interpretive Statements Sinus rhythm Borderline T abnormalities, anterior leads Borderline prolonged QT interval Compared to ECG 03/03/2021 23:08:24 T-wave abnormality now present Atrial abnormality no longer present Electronically Signed On 04-06-2021 7:14:15 CDT by Reji Lainez [email or web address] <ELECTRONICALLY SIGNED> By: Reji Lainez MD, [facility] 04/06/21713 0 Reji Lainez MD, FACC /EPI
== END 2021-04-06 07:18 | disposition home or self-care (01) ==
LOC: ER 05:13
PROVIDERS: Emergency Medicine
DX: J18.9 Pneumonia, unspecified organism (principal); Z20.822 Contact with and (suspected) exposure to COVID-19; J44.9 Chronic obstructive pulmonary disease, unspecified; I10 Essential (primary) hypertension; E03.9 Hypothyroidism, unspecified

== ENCOUNTER 2021-08-10 21:19 | Inpatient (IN) | payer OTHER ==
[~2021-08-10] VITALS: Ht 152.4 cm; Wt 43.6 kg
--- NOTE | ~2021-08-10 | EMS ---
[address] [address] EMS Patient Care Report Name: NELIA ANSARI Room #: REG MAGEN Connolly#: [id number] Admission: 08/10/21 Attend Phys: Discharge: Date of : 46 Report #: [id number] THIS REPORT FOR: //name// Report Transmitted: 08/10/2021 21:39 EMS Care Summary [place], [place]/[facility] Incident [id number] @ 08/10/2021 20:50 Incident Location [address] [place] [address] 1ST FLOOR Patient NELIA ANSARI Female, 70 Years 1950 Patient Address [address] [place] [id number] Patient History Chronic Obstructive Pulmonary Disease (COPD),Hyperlipidemia,Lung Cancer,Anxiety Disorder (Panic Attacks), Patient Allergies Acetaminophen,Codeine,Hydrocodone,Diphenhydramine,Prednisone,Oxycodone, Patient Medications Dulcolax, Anolor, Synthroid, Ativan, Miralax, Metoprolol, Lexapro, Zofran, Lorazepam, Albuterol, Tramadol, Meclizine, Ibuprofen, Zolpidem, Chief Complaint Short of Breath Disposition Transported No Lights/[place] Dispatch Reason Breathing Problem Transported To [facility] Narrative Nurse at [facility] stated Pt has been feeling bad all day and sleeping much as the day. Nurse stated Pt is with a history of COPD and when they checked Pt [address] [address] EMS Patient Care Report Name: NELIA ANSARI Room #: [facility]..#: [id number] Admission: 08/10/21 Attend Phys: Discharge: Date of : 46 Report #: [id number] pulse ox at the care center it red 88% on room air. Pt stated she has had a cough the last couple of days and today when she coughs she is bring up clear mucus and this evening she started getting short of breath and at times could not catch her breath at times. Pt is with no other complaints to EMS. Pt found sitting in wheelchair with pumper crew, Pt is on a Nasal Cannula @ 4 lpm and a wet cough noted by Medic. Pt is with wheezing noted in Pt upper lobes and diminished lung sounds in lower lobes and Pt pulse ox is at 99% when placed on Zoll monitor. Pt received Albuterol and Atrovent tx and repeated albuterol prior to arriving at [facility]. Pt is now moving air and upper lungs reyes are clear bilateral and slight diminished in lower lobes bilateral. Pt stated she is breathing better and a pulse ox @ 100% on arrival at hospital. Pt received by RN in ER. Initial Vitals @21:11P: 84,R: 22,BP: 160/96,Pain: 0/10,GCS: 15,SpO2: 100,Revised Trauma: 12, @20:54P: 89,R: 24,BP: 161/98,Pain: 0/10,GCS: 15,SpO2: 98,Revised Trauma: 12, @21:04P: 88,R: 22,BP: 159/95,Pain: 0/10,GCS: 15,SpO2: 100,Revised Trauma: 12, Assessments @20:54MENTAL:Person Oriented,Event Oriented,Time Oriented,Place Oriented,SKIN:HEENT:Head/Face: No Abnormalities,Neck/Airway: No Abnormalities,LUNG SOUNDS:General: No Abnormalities,ABDOMEN:General: No Abnormalities,PELVIS//GI:No Abnormalities,EXTREMITIES:Capillary Refill: Left Upper: < 2 Sec,Left Arm: No Abnormalities,Right Arm: No Abnormalities,Left Leg: No Abnormalities,Right Leg: No Abnormalities,PULSE:Radial: 2+ Normal,NEURO:No Abnormalities,@21:10MENTAL:Person Oriented,Time Oriented,Event Oriented,Place Oriented,SKIN:HEENT:Head/Face: No Abnormalities,Neck/Airway: No Abnormalities,LUNG SOUNDS:General: No Abnormalities,ABDOMEN:General: No Abnormalities,PELVIS//GI:No Abnormalities,EXTREMITIES:Capillary Refill: Left Upper: < 2 Sec,Left Arm: No Abnormalities,Right Arm: No Abnormalities,Left Leg: No Abnormalities,Right Leg: No Abnormalities,PULSE:Radial: 2+ Normal,NEURO:No Abnormalities, Impression Shortness of breath Procedures @20:58 3-Lead ECG Response: UnchangedSucceeded @21:04 IV Therapy - Saline Lock 0cc (20 ga) Site: Hand-Left Response: UnchangedFailed @20:54 ALS Assessment Response: UnchangedSucceeded @21:10 Albuterol - 2.5 Milligrams (mg) - Nebulized Response: Improved @20:57 Albuterol - 2.5 Milligrams (mg) - Nebulized Response: Improved @20:57 Atrovent - 0.5 Milligrams (mg) - Nebulized Response: Improved [facility] [address] [place] [address] EMS Patient Care Report Name: NELIA ANSARI Room #: REG Mohsen#: [id number] Admission: 08/10/21 Attend Phys: Discharge: Date of : 46 Report #: [id number] Timeline 20:44,Call Received 20:44,Dispatch Notified 20:50,Dispatched 20:51,En Route 20:53,On Scene 20:54,At Patient 20:54,ALS Assessment,Response: UnchangedSucceeded, 20:54,BP: 161/98 M,PULSE: 89,RR: 24 R,SPO2: 98 Ox,ETCO2: ,BG: ,PAIN: 0,GCS: 15, 20:57,Albuterol - 2.5 Milligrams (mg) - Nebulized,Response: Improved 20:57,Atrovent - 0.5 Milligrams (mg) - Nebulized,Response: Improved 20:58,3-Lead ECG,Response: UnchangedSucceeded, 21:04,IV Therapy - Saline Lock 0cc 20 ga Site: Hand-Left,Response: UnchangedFailed, 21:04,BP: 159/95 M,PULSE: 88,RR: 22 R,SPO2: 100 Ox,ETCO2: ,BG: ,PAIN: 0,GCS: 15, 21:06,Depart Scene 21:10,Albuterol - 2.5 Milligrams (mg) - Nebulized,Response: Improved 21:11,BP: 160/96 M,PULSE: 84,RR: 22 R,SPO2: 100 Ox,ETCO2: ,BG: ,PAIN: 0,GCS: 15, 21:12,At Destination 21:28,Call Closed Disclaimer v1.1 Copyright 2020 [employer] This EMS Care Summary contains data elements from the applicable legal record (which may be displayed differently). It is designed to provide pertinent information for the following purposes: continuity of care, clinical quality, and state data reporting. The complete legal record is available to ED staff and administrators of the receiving hospital in [facility]'s Patient Tracker. All data is provided "as is."
[~2021-08-10 21:19] MED LIST changes: +TESSALON PERLE100 MG PO; +ZPAK PO
[2021-08-10 21:24] VITALS: BP 151/86
[2021-08-10 22:02] LABS: ABSOLUTE NEUTROPHILS 4.3 thou/uL (1.4-8.2)
[2021-08-10 22:03] LABS: HEMATOCRIT 39.4 % (37.0-47.0); HEMOGLOBIN 13 gm/dL (12.0-15.0); LYMPHOCYTES 7.6 % (24.0-44.0); MCH 30.4 pg (26.0-34.0); MCHC 33.1 g/dL (28.0-37.0); MCV 91.8 fL (80.0-100.0); PLATELET COUNT 182 thou/uL (150-400); POLYS 77.5 % (36.0-66.0); RBC 4.29 mil/uL (4.20-5.00); RDW 14.5 % (10.5-14.5); WBC 5.6 thou/uL (4.0-11.0)
[2021-08-10 22:04] LABS: BASOPHILS 0.9 % (0.0-2.0)
[2021-08-10 22:22] LABS: POTASSIUM 3.4 mmol/L (3.5-5.1)
[2021-08-10 22:23] LABS: ALBUMIN 3.1 g/dL (3.4-5.0); CALCIUM 8.7 mg/dL (8.5-10.1); CREATININE 0.7 mg/dL (0.6-1.0); TOTAL BILIRUBIN 0.2 mg/dL (0.2-1.0); TOTAL PROTEIN 7.6 g/dL (6.4-8.2)
[2021-08-11] VITALS (8 sets, daily range): BP systolic 142–164; BP diastolic 61–88
--- NOTE | 2021-08-11 07:50 | NUR ---
patients cares where assumed after a transfer from er. 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 no flue or covid shots. nor does she want them. patient is breathing better this morning. rounds where done. the bed is in a low and locked position
--- NOTE | 2021-08-11 08:25 | EKG ---
[address] [employer] [place] [place] [address] ELECTROCARDIOGRAM REPORT Name: NELIA ANSARI Room #: 208-P ADM IN M.R.#: [id number] Admission: 08/10/21 Attend Phys: Nathan Haider MD Discharge: Date of : 46 Report #: [id number] [facility] ED Test Date: 2021-08-10 Test Time: 21:31:16 Pat Name: NELIA ANSARI Department: Room: [facility] Gender: F Industry Analyst: FANNY : 1950 Requested By: Frandy Narayan Order Number: [id number] MD: Beck Sosa Measurements Intervals [place] Rate: 82 P: 76 NC: 172 QRS: 73 QRSD: 77 T: 84 QT: 455 QTc: 532 Interpretive Statements Sinus rhythm Borderline abnrm T, anterolateral leads Prolonged QT interval Compared to ECG 04/06/2021 06:31:52 No significant changes found Electronically Signed On 08-11-2021 8:25:45 GAS CHARGER by Beck Sosa [email or web address] <ELECTRONICALLY SIGNED> By: Beck Sosa MD, [facility] 08/11/21824 30 30 Beck Sosa MD, [facility] /EPI
--- NOTE | 2021-08-11 13:57 | 2DMMODE ---
[facility] [place] [address] 2 D/M-MODE ECHOCARDIOGRAM Name: NELIA ANSARI Room #: 208-P ADM IN M.R.#: [id number] Admission: 08/10/21 Attend Phys: Nathan Haider MD Discharge: Date of : 46 Report #: [id number] THIS REPORT FOR: cc: Lukasz St MD, Darren E. MD Santiago, Patrick MD [facility] ~ APPROVED REPORT Study performed: 08/11/2021 14:10:01 EXAM: Comprehensive 2D, Doppler, and color-flow Echocardiogram Patient Location: Bedside Room #: 208 Status: routine BSA: 1.37 HR: 108 bpm BP: 157/73 mmHg Rhythm: Tachycardia Other Information Study Quality: Adequate Technically limited study due to lung disease/not all measurement taken. Indications Short of breath, COPD exacerbation. Hx: HTN, cancer. 2D Dimensions IVSd: 9.34 (7-11mm) LVOT Diam: 20.25 (18-24mm) LVDd: 41.78 mm PWd: 9.28 (7-11mm) LVDs: 23.31 (25-40mm) Left Atrium: 22.47 (27-40mm) Aortic Root: 38.69 mm Aortic Valve AoV Peak Hugh.: 1.26 m/s AO Peak Gr.: 6.33 mmHg LVOT Max P.62 mmHg LVOT Max V: 1.19 m/s MARISABEL Vmax: 3.03 cm2 Mitral Valve E/A Ratio: 0.7 [facility] [place] [address] [place] [address] 2 D/M-MODE ECHOCARDIOGRAM Name: ALISAMAGENNELIA Room #: 208-P ADM IN M.R.#: [id number] Admission: 08/10/21 Attend Phys: Nathan Haider MD Discharge: Date of : 46 Report #: [id number] MV Decel. Time: 166.28 ms MV E Max Hugh.: 0.89 m/s MV A Hugh.: 1.28 m/s MV PHT: 48.22 ms IVRT: 76.12 ms Pulmonary Valve PV Peak Hugh.: 1.28 m/s PV Peak Gr.: 6.51 mmHg Tricuspid Valve TR Peak Hugh.: 3.15 m/s RAP Estimate: 5.00 mmHg TR Peak Gr.: 40.00 mmHg PA Pressure: 45.00 mmHg Left Ventricle The left ventricle is normal size. There is normal LV segmental wall motion. There is normal left ventricular wall thickness. Left ventricular systolic function is normal. LVEF is 65%. Mild diastolic dysfunction is present (impaired relaxation pattern). Right Ventricle The right ventricle is normal size. The right ventricular systolic function is normal. Atria The left atrium size is normal. The right atrium size is normal. Aortic Valve Aortic valve is trileaflet and mildly calcified. No aortic regurgitation is present. There is no aortic valvular stenosis. Mitral Valve The mitral valve is normal in structure. There is no mitral valve regurgitation noted. No evidence of mitral valve stenosis. Tricuspid Valve The tricuspid valve is normal in structure. Trace tricuspid regurgitation. Estimated PAP is 45mmHg. Pulmonic Valve The pulmonary valve is normal in structure. Trace pulmonic regurgitation. Great Vessels [facility] [address] [place] [address] 2 D/M-MODE ECHOCARDIOGRAM Name: NELIA ANSARI Room #: 208-P [facility] IN .R.#: [id number] Admission: 08/10/21 Attend Phys: Nathan Haider MD Discharge: Date of : 46 Report #: [id number] The sinuses are mildly dilated at 3.9cm. The ascending aorta is normal in size. IVC is normal in size and collapses >50% with inspiration. Pericardium There is no pericardial effusion. <Conclusion> Normal left ventricle size/wall thickness Ejection fraction 65% Grade 1 diastolic dysfunction Normal right ventricle size/function Normal atrial size Normal aortic/mitral valve structure and function Trace tricuspid valve insufficiency Pulmonary systolic pressure estimated 45 mmHg No pericardial effusion Normal aortic root size <ELECTRONICALLY SIGNED> By: Reji Lainez MD, [facility] 08/11/21 1357 1357 1357 Reji Lainez MD, FACC /INF
--- NOTE | 2021-08-11 15:18 | NUR ---
Met with patient who is not a good historian. Patient resides at [facility]. Spoke with Ronal at [facility]. Patient uses a w/c at facility mostly. She uses walker in her room for short distances. Patient did not use oxygen relief captain. Rodessa has home health at [facility]. They prefer [place] [facility]. Patient has rec care at [facility] in past. Spoke with son updated on role of casemgt and possible dc in am. Faxed clinical information to Rodessa for review.
--- NOTE | 2021-08-11 18:24 | NUR ---
ASSESSMENT CHARTED - MEDS PER NOV - GIVEN TRAMADOL FOR CO'S OF HEADACHE WITH MIN ASSISTANCE PT STATES - PT SLEEPING POST ADMINISTRATION. TOBY DIET AND FLUIDS. WITH NO CO'S OF NAUSEA. UP TO THE BSC WITH MIN ASSIST - PT SHAKEY AND UNSTEADY ON FEET. O2 @ 2LNC - SEEN BY THERAPY TODAY. NO CO'S AT THE PRESENT TIME.
[2021-08-12 04:42] LABS: CREATININE 0.6 mg/dL (0.6-1.0)
[2021-08-12 05:08] VITALS: BP 140/76
[2021-08-12 05:27] LABS: HEMATOCRIT 36.1 % (37.0-47.0); HEMOGLOBIN 12.2 gm/dL (12.0-15.0); MCH 30.6 pg (26.0-34.0); MCHC 33.8 g/dL (28.0-37.0); MCV 90.6 fL (80.0-100.0); RBC 3.99 mil/uL (4.20-5.00); RDW 14.6 % (10.5-14.5); WBC 7.7 thou/uL (4.0-11.0)
--- NOTE | 2021-08-12 07:48 | NUR ---
PATIENTS CARES WAS ASSUMED AT SHIFT CHANGE, PATIENT WAS ASSESSED AND MEDS WHERE PASSED. PATIENT APPERS TO HAVE A BRIGHTER AFFECT SINCE HER ADMITTION. SHE CONTINUES ON STAND BY ASSIST. ROUNDS WHERE DONE, THE BED IS IN A LOW AND LOCKED POSITION
[2021-08-12 08:00] VITALS: BP 180/793
[2021-08-12] MEDS ORDERED: PREDNISONE 20 M20 MG PO (11:53)
[2021-08-12] MEDS ORDERED: MUCUS RLF DM E1 EACH PO (11:53)
[2021-08-12] MEDS ORDERED: NORVASC5 MG PO (11:53)
[2021-08-12] MEDS ORDERED: SYNTHROID75 MC1 PO (11:53)
[2021-08-12] MEDS ORDERED: PEPCID20 MG PO (11:53)
[2021-08-12] MEDS ORDERED: DOXYCYCLINE HYC50 MG PO (11:53)
[2021-08-12] MEDS ORDERED: IPRAT-ALBUT 0.5-3 ML INH (11:53)
[2021-08-12 16:00] VITALS: BP 181/96
--- NOTE | 2021-08-12 16:42 | NUR ---
Pt dcing back to [facility] this evening. W/c van transport vouched per [facility] at 6-6:30pm to facilite dc. Pt and her son aware of dc back to her apt today and agreeable. Hh orders faxed and confirmed with Suzanna in intake at [facility]. JALYN at [facility] is aware of pt's evening arrival and dc orders faxed to them as well. Nursing updated. No further cm interventions indicated. Nursing to send chart copy with the pt.
--- NOTE | 2021-08-12 18:26 | NUR ---
PATIENT ASSESSMENTS COMPLETED. PATIENT STATES SHE IS DOING WELL THIS MORNING AND DISCHARGE PLANNING WAS COMPLETED. PATIENT HAD A BRIEF PERIOD OF HYPERTENSION THAT WAS TREATED WITH HYDRALAZINE. PATIENT ATE ALL MEALS AND REMAINED COMFORTABLE.
--- NOTE | 2021-08-12 19:30 | NUR ---
PT TRANSFERED TO [facility]. REPORT CALLED. LEFT UNIT VIA WHEELCHAIR VAN - NO CO'S AT TIME OF D/C.
== END 2021-08-12 19:25 | disposition home health service (06) | DRG 189 ==
LOC: ER 21:19 → EROBS 23:42 → 2N 23:42
PROVIDERS: Emergency Medicine; Nurse Practitioner Family; ADMIT Hospitalist; ATTEND Hospitalist
DX: J96.21 Acute and chronic respiratory failure with hypoxia (principal); J44.1 Chronic obstructive pulmonary disease with (acute) exacerbation; E44.0 Moderate protein-calorie malnutrition; E87.1 Hypo-osmolality and hyponatremia; Z68.1 Body mass index [BMI] 19.9 or less, adult; Z20.822 Contact with and (suspected) exposure to COVID-19; F41.9 Anxiety disorder, unspecified; E03.9 Hypothyroidism, unspecified; I10 Essential (primary) hypertension; F17.210 Nicotine dependence, cigarettes, uncomplicated; G47.00 Insomnia, unspecified; R53.81 Other malaise; R63.4 Abnormal weight loss; E87.6 Hypokalemia; E87.8 Other disorders of electrolyte and fluid balance, not elsewhere classified; Z85.118 Personal history of other malignant neoplasm of bronchus and lung; Z87.81 Personal history of (healed) traumatic fracture; Z88.6 Allergy status to analgesic agent; Z88.8 Allergy status to other drugs, medicaments and biological substances; Z86.16 Personal history of COVID-19
CPT/HCPCS: 10081

== ENCOUNTER 2021-08-14 10:16 | Inpatient (IN) | payer OTHER ==
[~2021-08-14] VITALS: Ht 152.4 cm; Wt 43.5 kg
--- NOTE | ~2021-08-14 | EMS ---
[facility] [address] [place] [address] EMS Patient Care Report Name: NELIA ANSARI Room #: PRE M.R.#: [id number] Admission: Attend Phys: Discharge: Date of : 46 Report #: [id number] THIS REPORT FOR: //name// Report Transmitted: 08/14/2021 10:26 EMS Care Summary [place], [place]/[facility] Incident [id number] @ 08/14/2021 09:54 Incident Location [id number] [place] [address] Patient NELIA HERNANDES Female, 70 Years 1950 Patient Address [facility] [place] [address] Patient History Chronic Obstructive Pulmonary Disease (COPD),Anxiety, Patient Allergies Acetaminophen,Codeine,Hydrocodone,Diphenhydramine,Prednisone,Oxycodone, Chief Complaint low 02 sat Disposition Transported No Lights/[place] Dispatch Reason Breathing Problem Transported To [facility] Narrative pt found seated in bed, a&o, NAD. staff states pt was seen in [facility] on 08/12 for low 02 sat/SOB. they feel she should have been sent back on / her RA 02 sat is low. they report 02 sat 89%. pt states she feels ok seated but when she stands she is SOB. staff req pt return to [facility] and state, "Make sure they keep her until arrangements can be made to send her back ". pt to cot, VS, RA 02 sat 90%, pt placed on and sat increases to 99% at 2L. no other changes. [facility] [address] [place] [address] EMS Patient Care Report Name: NELIA ANSARI Room #: PRE ER M.R.#: [id number] Admission: Attend Phys: Discharge: Date of : 46 Report #: [id number] Initial Vitals @10:12R: 16,SpO2: 99, @10:05P: 88,R: 16,BP: 160/95,Pain: 0/10,GCS: 15,SpO2: 90,Revised Trauma: 12, Assessments @09:59MENTAL:No Abnormalities,SKIN:No Abnormalities,HEENT:Head/Face: No Abnormalities,LUNG SOUNDS:General: Nausea,ABDOMEN:General: Nausea,PELVIS//GI:EXTREMITIES:PULSE:Radial: 2+ Normal,NEURO:No Abnormalities, Impression Respiratory disorder Procedures @10:05 3-Lead ECG Response: Unchanged @09:59 ALS Assessment @10:02 Stretcher Response: Unchanged @10:05 Oxygen FlowRate: 2 Device: Nasal Cannula (NC) Response: ImprovedSucceeded Timeline 09:52,Call Received 09:52,Dispatch Notified 09:54,Dispatched 09:54,En Route 09:57,On Scene 09:59,At Patient 09:59,ALS Assessment, 10:02,Stretcher,Response: Unchanged 10:05,3-Lead ECG,Response: Unchanged 10:05,BP: 160/95 M,PULSE: 88,RR: 16 R,SPO2: 90 Ox,ETCO2: ,BG: ,PAIN: 0,GCS: 15, 10:05,Oxygen FlowRate: 2 Device: Nasal Cannula (NC) Response: ImprovedSucceeded, 10:06,Depart Scene 10:12,BP: / M,PULSE: ,RR: 16 R,SPO2: 99 Ox,ETCO2: ,BG: ,PAIN: ,GCS: , 10:12,At Destination 10:29,Call Closed Disclaimer v1.1 Copyright 2020 [employer] This EMS Care Summary contains data elements from the applicable legal record (which may be displayed differently). It is designed to provide pertinent information for the following purposes: continuity of care, clinical quality, and state data reporting. The complete legal record is available to ED staff and administrators of the receiving hospital in [employer] Patient Tracker. All data is provided "as is."
[~2021-08-14 10:16] MED LIST changes: +DOXYCYCLINE HYC50 MG PO; +IPRAT-ALBUT 0.5-3 ML INH; +MUCUS RLF DM E1 EACH PO; +NORVASC5 MG PO; +PEPCID20 MG PO; +SYNTHROID75 MC1 PO
[2021-08-14 10:17] VITALS: BP 138/86
[2021-08-14 11:16] LABS: ABSOLUTE NEUTROPHILS 5.9 thou/uL (1.4-8.2); BASOPHILS 0.2 % (0.0-2.0); EOSINOPHILS 0.4 % (0.0-3.0); HEMATOCRIT 37.9 % (37.0-47.0); HEMOGLOBIN 12.7 gm/dL (12.0-15.0); LYMPHOCYTES 4.6 % (24.0-44.0); MCH 30.7 pg (26.0-34.0); MCHC 33.4 g/dL (28.0-37.0); MCV 91.8 fL (80.0-100.0); MONOCYTES 8.2 % (1.0-8.0); PLATELET COUNT 248 thou/uL (150-400); POLYS 86.6 % (36.0-66.0); RBC 4.13 mil/uL (4.20-5.00); RDW 14.6 % (10.5-14.5); WBC 6.8 thou/uL (4.0-11.0)
[2021-08-14 11:50] LABS: ALBUMIN 3.2 g/dL (3.4-5.0); CREATININE 0.7 mg/dL (0.6-1.0); POTASSIUM 3.9 mmol/L (3.5-5.1); TOTAL BILIRUBIN 0.3 mg/dL (0.2-1.0); TOTAL PROTEIN 7.4 g/dL (6.4-8.2)
[2021-08-14 15:31] LABS: ALBUMIN 3.3 g/dL (3.4-5.0); TOTAL PROTEIN 7.2 g/dL (6.4-8.2)
[2021-08-14 17:14] VITALS: BP 136/74
[2021-08-14 19:39] VITALS: BP 114/66
[2021-08-15 04:20] LABS: HEMATOCRIT 38.6 % (37.0-47.0); HEMOGLOBIN 12.8 gm/dL (12.0-15.0); MCH 30.4 pg (26.0-34.0); MCHC 33.2 g/dL (28.0-37.0); MCV 91.4 fL (80.0-100.0); RBC 4.23 mil/uL (4.20-5.00); RDW 14.1 % (10.5-14.5); WBC 4.9 thou/uL (4.0-11.0)
[2021-08-15 04:40] LABS: CALCIUM 8.8 mg/dL (8.5-10.1); CREATININE 0.6 mg/dL (0.6-1.0); MAGNESIUM 1.8 mg/dL (1.8-2.4); POTASSIUM 3.8 mmol/L (3.5-5.1)
[2021-08-15 04:56] VITALS: BP 123/65
--- NOTE | 2021-08-15 06:52 | EKG ---
[address] [place] [address] ELECTROCARDIOGRAM REPORT Name: NELIA ANSARI Room #: 444-P ADM IN M.R.#: [id number] Admission: 08/14/21 Attend Phys: Rex Vargas MD Discharge: Date of : 46 Report #: [id number] [facility] ED Test Date: 2021-08-14 Test Time: 10:55:38 Pat Name: NELIA ANSARI Department: Room: 444 Gender: F Residential Leasing Manager: mark : 1950 Requested By: Kosta De La Cruz Order Number: [id number] MD: Reji Lainez Measurements Intervals [place] Rate: 70 P: 76 AR: 156 QRS: 67 QRSD: 83 T: 52 QT: 403 QTc: 435 Interpretive Statements Sinus rhythm Probable left atrial enlargement Borderline T wave abnormalities Compared to ECG 08/10/2021 21:31:16 T-wave abnormality now present Prolonged QT interval no longer present Electronically Signed On 08-15-2021 6:52:42 BULK MAIL CLERK by Reji Lainez [email or web address] <ELECTRONICALLY SIGNED> By: Reji Lainez MD, [facility] 08/15/21 0652 1055 1055 Reji Lainez MD, FAC /EPI
[2021-08-15 08:30] VITALS: BP 120/75
[2021-08-15 15:17] VITALS: BP 131/63
[2021-08-15 19:35] VITALS: BP 124/59
[2021-08-16 04:49] VITALS: BP 162/80
[2021-08-16 05:08] LABS: HEMATOCRIT 35.7 % (37.0-47.0); HEMOGLOBIN 11.6 gm/dL (12.0-15.0); MCH 29.9 pg (26.0-34.0); MCHC 32.6 g/dL (28.0-37.0); MCV 91.9 fL (80.0-100.0); RBC 3.89 mil/uL (4.20-5.00); RDW 14.4 % (10.5-14.5)
[2021-08-16 05:37] LABS: CALCIUM 8.5 mg/dL (8.5-10.1); CREATININE 0.5 mg/dL (0.6-1.0); MAGNESIUM 1.7 mg/dL (1.8-2.4); POTASSIUM 3.6 mmol/L (3.5-5.1)
[2021-08-16 08:01] VITALS: BP 149/83
[2021-08-16 11:08] VITALS: BP 137/80
[2021-08-16] MEDS ORDERED: ANORO ELLIPTA1 EACH INH (15:39)
[2021-08-16] MEDS ORDERED: LEVO-T75 MCG PO (15:43)
[2021-08-16] MEDS ORDERED: IPRAT-ALBUT 0.5-3 ML NEB (15:45)
[2021-08-16] MEDS ORDERED: LORAZEPAM 1 MG T1 MG PO (15:46)
[2021-08-16] MEDS ORDERED: MUCINEX DM ER1 EACH PO (15:47)
[2021-08-16 16:49] VITALS: BP 142/84
[2021-08-16 19:17] VITALS: BP 146/96
[2021-08-17 03:14] LABS: HEMATOCRIT 36.9 % (37.0-47.0); HEMOGLOBIN 12.4 gm/dL (12.0-15.0); MCH 30.6 pg (26.0-34.0); MCHC 33.6 g/dL (28.0-37.0); MCV 91.1 fL (80.0-100.0); RBC 4.05 mil/uL (4.20-5.00); RDW 14.3 % (10.5-14.5); WBC 7.6 thou/uL (4.0-11.0)
[2021-08-17 03:39] LABS: CALCIUM 8.6 mg/dL (8.5-10.1); CREATININE 0.5 mg/dL (0.6-1.0); MAGNESIUM 1.9 mg/dL (1.8-2.4); POTASSIUM 4.1 mmol/L (3.5-5.1)
[2021-08-17 05:39] VITALS: BP 153/86
[2021-08-17 07:20] VITALS: BP 157/87
[2021-08-17 11:19] VITALS: BP 154/95
[2021-08-17 15:31] VITALS: BP 142/85
[2021-08-17 19:43] VITALS: BP 149/89
[2021-08-18 04:24] VITALS: BP 167/86
[2021-08-18 05:26] LABS: HEMOGLOBIN 13.4 gm/dL (12.0-15.0); MCH 30.1 pg (26.0-34.0); MCHC 32.7 g/dL (28.0-37.0); RBC 4.46 mil/uL (4.20-5.00); RDW 14.4 % (10.5-14.5); WBC 14.1 thou/uL (4.0-11.0)
[2021-08-18 05:55] LABS: CALCIUM 8.7 mg/dL (8.5-10.1); CREATININE 0.5 mg/dL (0.6-1.0); POTASSIUM 3.3 mmol/L (3.5-5.1)
[2021-08-18 08:29] VITALS: BP 164/89
[2021-08-18 12:23] VITALS: BP 133/80
[2021-08-18 15:25] VITALS: BP 133/80
[2021-08-23] MEDS ORDERED: PREDNISONE 20 M20 M1 PO (09:03)
== END 2021-08-18 17:30 | disposition home health service (06) | DRG 189 ==
LOC: ER 10:16 → 4S 14:15 → EROBS 14:15 → 4S 17:31
PROVIDERS: Emergency Medicine; Hospitalist; ADMIT Internal Medicine; ATTEND Internal Medicine
DX: J96.20 Acute and chronic respiratory failure, unspecified whether with hypoxia or hypercapnia (principal); J44.1 Chronic obstructive pulmonary disease with (acute) exacerbation; C34.90 Malignant neoplasm of unspecified part of unspecified bronchus or lung; Z68.1 Body mass index [BMI] 19.9 or less, adult; K59.00 Constipation, unspecified; F32.A Depression, unspecified; Z20.822 Contact with and (suspected) exposure to COVID-19; I10 Essential (primary) hypertension; F41.9 Anxiety disorder, unspecified; E86.0 Dehydration; E03.9 Hypothyroidism, unspecified; R53.81 Other malaise; F32.9 Major depressive disorder, single episode, unspecified; R63.4 Abnormal weight loss; G47.00 Insomnia, unspecified; Z85.118 Personal history of other malignant neoplasm of bronchus and lung; Z86.16 Personal history of COVID-19; Z87.81 Personal history of (healed) traumatic fracture; Z88.6 Allergy status to analgesic agent; Z88.8 Allergy status to other drugs, medicaments and biological substances; Z87.891 Personal history of nicotine dependence; Z28.21 Immunization not carried out because of patient refusal; Z71.6 Tobacco abuse counseling
CPT/HCPCS: 10100

== ENCOUNTER → 2021-08-23 | Emergency (ER) | payer OTHER ==
[~2021-08-23] VITALS: Ht 165.1 cm; Wt 61.2 kg
[~2021-08-23] MED LIST changes: +IPRAT-ALBUT 0.5-3 ML NEB; +LEVO-T75 MCG PO; +LORAZEPAM 1 MG T1 MG PO; +MUCINEX DM ER1 EACH PO; +PREDNISONE 20 M20 M1 PO
--- NOTE | ~2021-08-23 | EMS ---
[address] [address] EMS Patient Care Report Name: NELIA ANSARI Room #: REG MAGEN Connolly#: [id number] Admission: 08/23/21 Attend Phys: Discharge: Date of : 46 Report #: [id number] THIS REPORT FOR: //name// Report Transmitted: 08/23/2021 05:48 EMS Care Summary [place], [place]/[facility] Incident [id number] @ 08/23/2021 05:49 Incident Location [id number] [place] [address] Patient NELIA ANSARI Female, 70 Years 1950 Patient Address [address] [place], [place] [id number] Patient History Chronic Obstructive Pulmonary Disease (COPD),Lung Cancer,Anxiety,Vertigo, Patient Allergies Codeine,Hydrocodone,Diphenhydramine,Prednisone,Oxycodone, Patient Medications Albuterol, Chief Complaint shortness of breath Disposition Transported No Lights/[place] Dispatch Reason Breathing Problem Transported To [facility] Narrative M36 dispatched on a shortness of breath. M36 arrived to scene to find PT in wheelchair being rolled out by staff. PT stated shortness of breath increasing with exertion as chief complaint. PT denied being on oxygen all the time. PT stated she uses oxygen as needed. PT found to have unproductive cough, nausea and weakness as additional complaints. PT denied being COVID vaccinated. PT [address] [address] EMS Patient Care Report Name: NELIA ANSARI Room #: REG [facility].#: [id number] Admission: 08/23/21 Attend Phys: Discharge: Date of : 46 Report #: [id number] stated she was tested recently for COVID and it was negative. PT stated "I feel like this most mornings, but wanted to go to the hospital today." PT denied vomiting and diarrhea. PT assisted to stand and pivot to stretcher by EMS. PT secured with seatbelts and blanket. PT placed on oxygen in ambulance. PT vitals monitored during transport. PT report given. PT moved to hospital bed via three person sheet lift. PT care and belongings transferred to ER staff at [facility] without incident. M36 placed back in service. Initial Vitals @06:01P: 120,R: 18,BP: 152/88,Pain: 0/10,GCS: 15,SpO2: 88,Revised Trauma: 12, @06:06P: 112,R: 16,BP: 130/82,Pain: 0/10,GCS: 15,SpO2: 94,Revised Trauma: 12, Assessments @06:08MENTAL:Event Oriented,Time Oriented,Person Oriented,Place Oriented,SKIN:HEENT:Head/Face: Drainage,LUNG SOUNDS:General: Nausea,ABDOMEN:General: Nausea,PELVIS//GI:EXTREMITIES:PULSE:Radial: 2+ Normal,NEURO: Impression Shortness of breath Procedures @06:07 ALS Assessment Response: UnchangedSucceeded @06:07 Oxygen FlowRate: 2 Device: Nasal Cannula (NC) Response: ImprovedSucceeded Timeline 05:47,Call Received 05:47,Dispatch Notified 05:49,Dispatched 05:51,En Route 05:57,On Scene 05:58,At Patient 06:01,BP: 152/88 M,PULSE: 120,RR: 18 R,SPO2: 88 Ox,ETCO2: ,BG: ,PAIN: 0,GCS: 15, 06:05,Depart Scene 06:06,BP: 130/82 M,PULSE: 112,RR: 16 R,SPO2: 94 Ox,ETCO2: ,BG: ,PAIN: 0,GCS: 15, 06:07,ALS Assessment,Response: UnchangedSucceeded, 06:07,Oxygen FlowRate: 2 Device: Nasal Cannula (NC) Response: ImprovedSucceeded, 06:11,At Destination 06:30,Call Closed Disclaimer [address] [address] EMS Patient Care Report Name: NELIA ANSARI [facility] [id number] Admission: 08/23/21 Attend Phys: Discharge: Date of : 46 Report #: [id number] v1.1 Copyright 2020 [employer] This EMS Care Summary contains data elements from the applicable legal record (which may be displayed differently). It is designed to provide pertinent information for the following purposes: continuity of care, clinical quality, and state data reporting. The complete legal record is available to ED staff and administrators of the receiving hospital in [facility]'s Patient Tracker. All data is provided "as is."
[2021-08-23 06:51] LABS: ABSOLUTE NEUTROPHILS 12.3 thou/uL (1.4-8.2); BASOPHILS 0.4 % (0.0-2.0); EOSINOPHILS 0.8 % (0.0-3.0); HEMATOCRIT 39.3 % (37.0-47.0); HEMOGLOBIN 12.6 gm/dL (12.0-15.0); LYMPHOCYTES 0.8 % (24.0-44.0); MCH 29.8 pg (26.0-34.0); MCHC 32.1 g/dL (28.0-37.0); MCV 92.7 fL (80.0-100.0); MONOCYTES 9.4 % (1.0-8.0); PLATELET COUNT 221 thou/uL (150-400); POLYS 88.6 % (36.0-66.0); RBC 4.24 mil/uL (4.20-5.00); RDW 14.5 % (10.5-14.5); WBC 13.9 thou/uL (4.0-11.0)
[2021-08-23 07:18] LABS: CALCIUM 8.2 mg/dL (8.5-10.1); CREATININE 0.5 mg/dL (0.6-1.0); POTASSIUM 3.5 mmol/L (3.5-5.1)
[2021-08-23 07:28] LABS: ALBUMIN 2.5 g/dL (3.4-5.0); TOTAL BILIRUBIN 0.5 mg/dL (0.2-1.0); TOTAL PROTEIN 6.6 g/dL (6.4-8.2)
[2021-08-23 07:33] LABS: URINE BILIRUBIN NEGATIVE (Negative); URINE BLOOD 3+ (Negative); URINE CLARITY CLEAR; URINE COLOR YELLOW; URINE GLUCOSE-RANDOM* NEGATIVE (Negative); URINE KETONES TRACE (Negative); URINE LEUKOCYTES-REFLEX NEGATIVE (Negative); URINE NITRITE-REFLEX NEGATIVE (Negative); URINE PROTEIN (DIPSTICK) TRACE (Negative)
--- NOTE | 2021-08-23 07:51 | EKG ---
[place] [address] [address] [facility] [place] [address] ELECTROCARDIOGRAM REPORT Name: NELIA ANSARI [id number] Admission: 08/23/21 Attend Phys: Discharge: Date of : 46 Report #: [id number] [facility] ED Test Date: 2021-08-23 Test Time: 07:14:59 Pat Name: NELIA ANSARI Department: Room: Gender: F Grip Wrapper: DANIELA : 1950 Requested By: Kosta De La Cruz Order Number: [id number] MD: Reji Lainez Measurements Intervals [place] Rate: 92 P: 45 OK: 159 QRS: 38 QRSD: 75 T: QT: 442 QTc: 547 Interpretive Statements Sinus rhythm Borderline abnrm T, anterolateral leads Baseline wander in lead(s) V6 Compared to ECG 08/14/2021 10:55:38 T-wave abnormality no longer present Electronically Signed On 08-23-2021 7:50:56 COLLECTIONS MANAGER by Reji Lainez [email or web address] <ELECTRONICALLY SIGNED> By: Reji Lainez MD, [facility] 08/23/21 0750 3 3 Reji Lainez MD, FACC /EPI
[2021-08-23 07:56] LABS: SQUAMOUS 0-3 Few /LPF (0-3); URINE WBC-REFLEX None Seen /HPF (0-5)
[2021-08-23 07:57] LABS: BACTERIA-REFLEX None Seen /HPF (None Seen); CRYSTALS None Seen /LPF (None Seen)
[2021-08-23 08:13] LABS: BE(vivo) 6.4 mmol/L (-2 to +3); HCO3 31.1 mmol/L (22.0-26.0); PCO2 45.4 mmHg (35.0-45.0); PO2 83.7 mmHg (80.0-100.0); pH 7.454 (7.360-7.450); sO2 96.6 % (92.0-98.0)
[2021-08-23 10:14] VITALS: BP 127/66
== END ==
LOC: ER 06:18
PROVIDERS: Emergency Medicine
DX: J44.1 Chronic obstructive pulmonary disease with (acute) exacerbation (principal); Z20.822 Contact with and (suspected) exposure to COVID-19; I10 Essential (primary) hypertension; E03.9 Hypothyroidism, unspecified; Z85.118 Personal history of other malignant neoplasm of bronchus and lung; Z79.899 Other long term (current) drug therapy; Z88.6 Allergy status to analgesic agent; Z88.5 Allergy status to narcotic agent; Z88.8 Allergy status to other drugs, medicaments and biological substances